=== PATIENT | female | born 1950 | race African-American/Black ===

== ENCOUNTER 2023-04-15 11:24 | Observation (INO) ==
[2023-04-15 14:55] VITALS: BMI 35.4
[2023-04-15] MEDS: PEPCID 20 MG VIAL 20 MG in NS 50 ML IV 50 ML IV SCH ×2 (15:19→21:15)
[2023-04-15] MEDS: PROTONIX INJ 40 MG VIAL IVP SCH ×2 (15:19→21:15)
[2023-04-15] MEDS: NS 1,000 ML IV 1,000 ML IV SCH (15:21)
[2023-04-15 15:30] LABS: BASOPHILS % (AUTO) 0.4 % (0.2-1.0); EOSINOPHILS # (AUTO) 0.1 x10^3/uL (0.0-0.2); EOSINOPHILS % (AUTO) 1.7 % (0.9-2.9); HEMATOCRIT 27.6 % (36.0-47.0); HEMOGLOBIN 8.7 g/dL (12.0-16.0); LYMPHOCYTES # (AUTO) 1.9 X10^3/uL (1.3-2.9); LYMPHOCYTES % (AUTO) 26.7 % (21.0-51.0); MEAN CORPUSCULAR HEMOGLOBIN 22.4 pg (27.0-34.0); MEAN CORPUSCULAR HGB CONC 31.6 g/dL (33.0-35.0); MEAN CORPUSCULAR VOLUME 70.9 fL (80.0-100.0); MEAN PLATELET VOLUME 7.8 fL (7.4-11.0); MONOCYTES # (AUTO) 0.9 x10^3/uL (0.3-0.8); MONOCYTES % (AUTO) 12.4 % (0.0-13.0); NEUTROPHILS # (AUTO) 4.1 x10^3/uL (2.2-4.8); NEUTROPHILS % (AUTO) 58.8 % (42.0-75.0); PLATELET COUNT 421 X10^3/uL (150.0-450.0); RED BLOOD COUNT 3.89 X10^6/uL (3.5-5.4); RED CELL DISTRIBUTION WIDTH 20.5 % (11.6-16.5); WHITE BLOOD COUNT 6.9 X10^3/uL (3.6-10.0)
[2023-04-15 15:46] LABS: ALANINE AMINOTRANSFERASE 30 Units/L (12-78); ALBUMIN 2.8 g/dL (3.4-5.0); ALKALINE PHOSPHATASE 79 Units/L (46-116); ASPARTATE AMINO TRANSFERASE 29 Units/L (15-37); BLOOD UREA NITROGEN 13 mg/dL (7-18); CALCIUM 8.4 mg/dL (8.5-10.1); CARBON DIOXIDE 31.5 mmol/L (21-32); CHLORIDE 107 mmol/L (98-107); COR CA(FOR HYPOALB) 9.4 mg/dL (8.5-10.1); CREATININE 1.15 mg/dL (0.55-1.02); GLUCOSE 88 mg/dL (65-99); POTASSIUM 4.1 mmol/L (3.5-5.1); SODIUM 144 mmol/L (136-145); TOTAL PROTEIN 6.8 g/dL (6.4-8.2); eGFR NON BLACK RACES 49 (>60)
[2023-04-15 15:57] LABS: ANISOCYTOSIS 1+; BURR CELLS FEW; HYPOCHROMASIA SLIGHT; MICROCYTOSIS SLIGHT; OVALOCYTES FEW; PLATELET MORPHOLOGY COMMENT NORMAL (NORMAL); POIKILOCYTOSIS SLIGHT; SCHISTOCYTES FEW; TARGET CELLS FEW
[2023-04-15] MEDS ORDERED: PATIENT'S HOME MEDICATION (Oxycodone-Acetaminophen 10-325 mg tablet) PO PRN (22:43)
[2023-04-15] MEDS ORDERED: ULTRAM PO PRN (22:43)
[2023-04-16] MEDS: NS 1,000 ML IV 1,000 ML IV SCH ×2 (04:30→17:44)
[2023-04-16 05:23] LABS: BASOPHILS % (AUTO) 0.7 % (0.2-1.0); EOSINOPHILS # (AUTO) 0.2 x10^3/uL (0.0-0.2); EOSINOPHILS % (AUTO) 2.6 % (0.9-2.9); HEMATOCRIT 26.7 % (36.0-47.0); HEMOGLOBIN 8.8 g/dL (12.0-16.0); LYMPHOCYTES # (AUTO) 2.1 X10^3/uL (1.3-2.9); LYMPHOCYTES % (AUTO) 33.3 % (21.0-51.0); MEAN CORPUSCULAR HEMOGLOBIN 22.8 pg (27.0-34.0); MEAN CORPUSCULAR HGB CONC 32.9 g/dL (33.0-35.0); MEAN CORPUSCULAR VOLUME 69.3 fL (80.0-100.0); MEAN PLATELET VOLUME 7.8 fL (7.4-11.0); MONOCYTES # (AUTO) 0.6 x10^3/uL (0.3-0.8); MONOCYTES % (AUTO) 9.1 % (0.0-13.0); NEUTROPHILS # (AUTO) 3.5 x10^3/uL (2.2-4.8); NEUTROPHILS % (AUTO) 54.3 % (42.0-75.0); PLATELET COUNT 460 X10^3/uL (150.0-450.0); RED BLOOD COUNT 3.86 X10^6/uL (3.5-5.4); RED CELL DISTRIBUTION WIDTH 20.5 % (11.6-16.5); WHITE BLOOD COUNT 6.4 X10^3/uL (3.6-10.0)
[2023-04-16 05:25] LABS: ALANINE AMINOTRANSFERASE 28 Units/L (12-78); ALBUMIN 2.6 g/dL (3.4-5.0); ALKALINE PHOSPHATASE 79 Units/L (46-116); ASPARTATE AMINO TRANSFERASE 27 Units/L (15-37); BLOOD UREA NITROGEN 11 mg/dL (7-18); CARBON DIOXIDE 31.5 mmol/L (21-32); CHLORIDE 108 mmol/L (98-107); COR CA(FOR HYPOALB) 9.1 mg/dL (8.5-10.1); CREATININE 1.03 mg/dL (0.55-1.02); GLUCOSE 82 mg/dL (65-99); POTASSIUM 3.8 mmol/L (3.5-5.1); SODIUM 145 mmol/L (136-145); TOTAL PROTEIN 6.5 g/dL (6.4-8.2); eGFR NON BLACK RACES 56 (>60)
[2023-04-16 06:45] LABS: ANISOCYTOSIS 1+; BURR CELLS FEW; HYPOCHROMASIA SLIGHT; MICROCYTOSIS 1+; OVALOCYTES FEW; PLATELET MORPHOLOGY COMMENT NORMAL (NORMAL); POIKILOCYTOSIS SLIGHT; SCHISTOCYTES FEW; TARGET CELLS FEW
[2023-04-16] MEDS ORDERED: POTASSIUM CHLORIDE LIQ 20 MEQ UDC PO PRN (08:04)
[2023-04-16] MEDS ORDERED: POTASSIUM CHL 40 MEQ/NS 0.45% 500 ML IV PRN (08:04)
[2023-04-16] MEDS ORDERED: K-DUR TAB 20 MEQ PO PRN (08:04)
[2023-04-16] MEDS ORDERED: K-RIDER 10 MEQ/NS 100 ML 10 MEQ/100 ML BAG IV PRN (08:04)
[2023-04-16] MEDS ORDERED: KLOR-CON PO PRN (08:04)
[2023-04-16] MEDS ORDERED: POTASSIUM CHL 60 MEQ/NS 0.45% 500 ML IV PRN (08:04)
[2023-04-16] MEDS ORDERED: MICRO K EXTEN CAP 10 MEQ PO PRN (08:04)
--- NOTE | 2023-04-16 08:50 | DR.UPDATE ---
H&P Update Prescription drug monitoring program results: PDMP reviewed and no concerns identified H&P Reviewed: Yes Any changes to H&P?: Yes Changes noted:: IS A YEAR OLD PATIENT OF OURS. SHE PRESENTED TO THE OFFICE ON 04/15 WITH COMPLAINTS OF FATIGUE, GENERALIZED WEAKNESS, SHORTNESS OF BREATH, AND JOINT PAIN. SHE REPORTS THAT SYMPTOMS HAVE BEEN ONGOING FOR SEVERAL WEEKS. SHE HAD LABS DRAWN ON 03/26/23. HER HEMOGLOBIN WAS NOTED TO BE 8.6 AND HCT WAS 29.1 AT THAT TIME. SHE DENIED THE PRESENCE OF BLOOD IN STOOLS OR ANY ABNORMAL BLEEDING. SHE DENIES ABDOMINAL PAIN. PMH INCLUDES: CARDIAC ARRHYTHMIA, HTN, A-FIB, ARTHRITIS, CHRONIC BACK PAIN, TYPE 2 DM, ANEMIA, ANXIETY, DEPRESSION, , CHOLECYSTECTOMY, BILATERAL KNEE SURGERY, GASTRIC BYPASS. DECISION WAS MADE TO ADMIT PATIENT TO THE HOSPITAL OBSERVATION STATUS FOR FURTHER EVALUATION AND TREATMENT OF ANEMIA, GENERALIZED WEAKNESS, TYPE 2 DM MELLITUS, HTN. ON ARRIVAL, HER VITALS WERE 98.2-84-18-98%-123/83. LABS WERE OBTAINED. WBC 6.9, RBC 3.89, HGB 8.7, HCT 27.6, PLT COUNT 421, SODIUM 144, POTAS SIUM 4.1, CHLORIDE 107, BUN 13, CREATININE 1.15, GLUCOSE 88, CALCIUM 8.4, TOTAL BILI 0.80, AST 29, ALT 30, ALK PHOS 79, TOTAL PROTEIN 6.8, ALBUMIN 2.8. SHE WAS STARTED ON NORMAL SALINE AT 80 ML/HR, FAMOTIDINE 20MG IV Q12H, AND PROTONIX 40MG IV BID. WE WILL RESUME HER HOME MEDICATIONS OF REQUIP, HCTZ, PERCOCET PRN PAIN, COREG, AMIODARONE, SIMVASTATIN, DULOXETINE, ULTRAM PRN, ZANAFLEX, AND NEURONTIN. SHE USUALLY TAKES ELIQUIS AND BRILINTA AT HOME. WE WILL HOLD THESE FOR NOW. WE WILL OBTAIN A STOOL TO CHECK FOR OCCULT BLOOD. WE WILL OBTAIN AN ANEMIA PANEL, PELVIC ULTRASOUND, AND CONSULT FOR POSSIBLE ENDOSCOPY. OTHERWISE, WE PLAN TO FOLLOW-UP WITH AM LABS AND CONTINUE TO MONITOR. TIME SPENT ON CLINICAL ASSESSMENT, REVIEWING LABS AND IMAGING, DECISION MAKING, AND DOCUMENTATION GREATER THAN 75 MINUTES. Patient was examined?: Yes
[2023-04-16] MEDS ORDERED: AMIODARONE 100 MG PO SCH (09:00)
[2023-04-16] MEDS: COREG TAB 3.125 MG PO SCH ×2 (09:11→21:30)
[2023-04-16] MEDS: CORDARONE TAB 200 MG PO SCH (09:11)
[2023-04-16] MEDS: HYDROCHLOROTHIAZIDE 12.5 MG CAP PO SCH (09:11)
[2023-04-16] MEDS: PEPCID 20 MG VIAL 20 MG in NS 50 ML IV 50 ML IV SCH ×2 (09:12→21:30)
[2023-04-16] MEDS: PROTONIX INJ 40 MG VIAL IVP SCH ×2 (09:12→21:30)
[2023-04-16] MEDS: CYMBALTA PO SCH (09:12)
[2023-04-16] MEDS: ZANAFLEX PO SCH ×2 (09:12→21:29)
[2023-04-16] MEDS: NEURONTIN CAP 400 MG PO SCH ×2 (09:12→21:28)
--- NOTE | 2023-04-16 12:40 | DR.CONSULT ---
Consult - Consultation for Day of: Date: 04/16/23 - Chief Complaint Chief Complaint: Anemia, occult GIB - History of Present Illness History of Present Illness: Pt. referred for Anemia, occult GIB. Pt has h/o Gastric Bypass, last EGD on 09/23/2018, showed gastric bypass. Last colonoscopy was on 05/08/2022. She has h/o a large Tubular adenoma of Ascending colon. Pt. takes Plavix and Eliquis, denies any melena or hematochezia. - Past Medical History Past Medical History: Hypertension, Dyslipidemia, Diabetes, Depression, Anxiety, Hypothyroidism, Arthritis, Sleep Apnea - Past Surgical History Surgical History: , Cholecystectomy, Weight Loss Surgery Additional Surgical History: History of Gastric bypass - Family History Family Medical History: Cancer (Ovarian). denies: Diabetes Mellitus, [place], Coronary Artery Disease, Heart Failure, Sudden Cardiac , Hypertension - Social History Does patient currently use any type of tobacco product: No Have you used tobacco products in the last 12 months: No Does any household member use tobacco: No Alcohol Use: None Drug Use: None - Medications Home Medications: No Known Drug Allergies Allergy (Verified 04/15/23 14:59) CONTINUE taking the following medications amiodarone 100 mg tablet 200 mg PO DAILY 04/15/23 [History] apixaban 5 mg tablet (Eliquis) 5 mg PO BID 04/15/23 [History] carvedilol 3.125 mg tablet (Coreg) 3.125 mg PO BID 04/15/23 [History] duloxetine 60 mg capsule,delayed release 60 mg PO DAILY 04/15/23 [History] hydrochlorothiazide 12.5 mg capsule 12.5 mg PO DAILY 04/15/23 [History] oxycodone-acetaminophen 10 mg-325 mg tablet 1 tab PO TID PRN 04/15/23 [History] pantoprazole 40 mg tablet,delayed release (Protonix) 40 mg PO DAILY 04/15/23 [History] ticagrelor 90 mg tablet (Brilinta) 90 mg PO BID 04/15/23 [History] tramadol 50 mg tablet 50 mg PO QID PRN 04/15/23 [History] - Review of Systems Constitutional: denies: No Symptoms Reported, See HPI, Fever, Chills, Sweats, Weakness, Malaise, Other Eyes: denies: No Symptoms Reported, See HPI, Pain, Vision Change, Conjunctivae Inflammation, Eyelid Inflammation, Redness, Other ENT: denies: No Symptoms Reported, See HPI, Ear Pain, Ear Discharge, Nose Pain, Nose Discharge, Nose Congestion, Mouth Pain, Mouth Swelling, Throat Pain, Throat Swelling, Other Respiratory: denies: No Symptoms Reported, See HPI, Cough, Dry, Shortness of Breath, Hemoptysis, SOB with Excertion, Pleuritic Pain, Sputum, Wheezing, Other Cardiovascular: denies: No Symptoms Reported, Chest Pain, See HPI, Palpitations, Orthopnea, Paroxysmal Noc. Dyspnea, Edema, Light Headedness, Other Gastrointestinal: denies: No Symptoms Reported, See HPI, Nausea, Vomiting, Abdominal Pain, Diarrhea, Constipation, Melena, Hematochezia, Other Genitourinary: denies: No Symptoms Reported, See HPI, Dysuria, Frequency, Incontinence, Hematuria, Retention, Other Musculoskeletal: denies: No Symptoms Reported, See HPI, Shoulder Pain, Arm Pain, Back Pain, Hand Pain, Leg Pain, Foot Pain, Neck Pain, Other Neurological: denies: No Symptoms Reported, See HPI, Weakness, Numbness, Incoordination, Change in Speech, Confusion, Seizures, Other - Physical Exam Vital Signs: Temperature 97.7 F Temperature 97.9 F Pulse Rate [Right Brachial] 60 Pulse Rate [Right Brachial] 68 Respiratory Rate 18 Respiratory Rate 18 Blood Pressure [Right Arm] 141/63 Blood Pressure 136/104 O2 Sat by Pulse Oximetry 100 O2 Sat by Pulse Oximetry 98 Oriented: Normal, Time, Person, Place. negative: Not Oriented, Unable to test, Other Eyes: negative: Normal, Blurred Vision, Diplopia, Discharge, Pain, Redness, Photophobia, Other Ear: negative: Normal, Right, Left, Swelling, Ecchymosis, Hemotypanum, Abrasion, Laceration Nose: negative: Normal, Injected, Discharge, Blood, Other Respiratory: Clear Throughout Cardiovascular: negative: Normal, Tachycardia, Bradycardia, Irregular, S3, S4, Systolic, Diastolic, Murmur, Edema, Other Auscultation: Bowel Sounds: negative: Normal, Bruit, Absent, Increased, Decreased, High Pitched, Other Palpation: negative: Normal, Spleen Enlarged, Liver Enlarged, Mass Pulsatile, O ther Tenderness: negative: Normal, Diffuse, RUQ, RLQ, LUQ, LLQ, Epigastric, Periumbilical, Suprapubic, Mild, Moderate, Severe, Rebound, Guarding, Rigidity, Other Skin: negative: Normal, Decreased Turgur, Rash, Papular, Macular, Maculopapular, Vesicular, Pustular, Petechial, Red, Tender, Hot, Diaphoresis, Wound, Bruising, Ecchymosis, Other Musculoskeletal: negative: Normal, Right, Left, Shoulder, Clavicle, Arm, Elbow, Forearm, Wrist, Hand, Hip, Thigh, Knee, Leg, Ankle, Foot, Back:Thoracic, Back:Lumbar, Back:Midline, Back:Paraspinous, Pelvis, Swelling, Tender, Deformity, Pulse Deficit, Motor Deficit, Sensory Deficit, Instability, Crepitance - Plan Plan: Assessment: 1. Iron deficiency anemia, partly due to gastric bypass surgery, pt. , however also as occult GIB. r/o /DU. 2. H/o large tubular adenoma, last colonoscopy done last year was normal. Plan: Pt. had full breakfast today, unable to do EGD today, she'll be scheduled for ourpatient EGD next . She will also need an outpatient Video Capsule Endoscopy, this will be sceduled as well. The plan was d/w pt. in detail, she understands and agrees with above workup. - Allergies Allergies/Adverse Reactions: Allergies Allergy/AdvReac Type Severity Reaction Status Date / Time No Known Drug Allergies Allergy Verified 04/15/23 14:59
[2023-04-16] MEDS: PERCOCET TAB 5/325 MG PO PRN (13:59)
[2023-04-16] MEDS ORDERED: ZOCOR TAB 40 MG PO SCH (21:00)
[2023-04-16] MEDS ORDERED: REQUIP PO SCH (21:00)
[2023-04-17 05:37] LABS: BASOPHILS % (AUTO) 0.5 % (0.2-1.0); EOSINOPHILS # (AUTO) 0.2 x10^3/uL (0.0-0.2); EOSINOPHILS % (AUTO) 3.1 % (0.9-2.9); HEMATOCRIT 24.9 % (36.0-47.0); HEMOGLOBIN 8.1 g/dL (12.0-16.0); LYMPHOCYTES # (AUTO) 2.4 X10^3/uL (1.3-2.9); LYMPHOCYTES % (AUTO) 36.6 % (21.0-51.0); MEAN CORPUSCULAR HEMOGLOBIN 22.6 pg (27.0-34.0); MEAN CORPUSCULAR HGB CONC 32.4 g/dL (33.0-35.0); MEAN CORPUSCULAR VOLUME 69.8 fL (80.0-100.0); MEAN PLATELET VOLUME 7.8 fL (7.4-11.0); MONOCYTES # (AUTO) 0.7 x10^3/uL (0.3-0.8); MONOCYTES % (AUTO) 11.1 % (0.0-13.0); NEUTROPHILS # (AUTO) 3.2 x10^3/uL (2.2-4.8); NEUTROPHILS % (AUTO) 48.7 % (42.0-75.0); PLATELET COUNT 411 X10^3/uL (150.0-450.0); RED BLOOD COUNT 3.56 X10^6/uL (3.5-5.4); RED CELL DISTRIBUTION WIDTH 19.9 % (11.6-16.5); WHITE BLOOD COUNT 6.5 X10^3/uL (3.6-10.0)
[2023-04-17 05:38] LABS: ALANINE AMINOTRANSFERASE 29 Units/L (12-78); ALBUMIN 2.6 g/dL (3.4-5.0); ALKALINE PHOSPHATASE 71 Units/L (46-116); ASPARTATE AMINO TRANSFERASE 24 Units/L (15-37); BLOOD UREA NITROGEN 11 mg/dL (7-18); CALCIUM 8.2 mg/dL (8.5-10.1); CARBON DIOXIDE 30.6 mmol/L (21-32); CHLORIDE 107 mmol/L (98-107); COR CA(FOR HYPOALB) 9.3 mg/dL (8.5-10.1); CREATININE 0.96 mg/dL (0.55-1.02); GLUCOSE 84 mg/dL (65-99); POTASSIUM 4.2 mmol/L (3.5-5.1); SODIUM 143 mmol/L (136-145); TOTAL PROTEIN 6.2 g/dL (6.4-8.2); eGFR NON BLACK RACES > 60 (>60)
[2023-04-17] MEDS: PERCOCET TAB 5/325 MG PO PRN (05:52)
[2023-04-17 06:08] LABS: PLATELET MORPHOLOGY COMMENT NORMAL (NORMAL)
[2023-04-17 06:09] LABS: ANISOCYTOSIS 1+; BURR CELLS PRESENT; HYPOCHROMASIA 1+; MICROCYTOSIS 1+; OVALOCYTES PRESENT; POIKILOCYTOSIS PRESENT; SCHISTOCYTES PRESENT; TARGET CELLS PRESENT
--- NOTE | 2023-04-17 07:44 | US ---
HISTORYAnemiaSTUDYPELVIC (NON OB)COMPARISONNone availableTECHNIQUEMultiple stevens scale, duplex and color flow Doppler images of the pelvic organs was performed transabdominalFINDINGSThe uterus measures 5.4 x 3.3 x 3.9 centimeters. No uterine masses. The endometrial thickness is 3 millimeters.The ovaries were not visualized. No free fluid in the cul de sac. No dominant adnexal massesIMPRESSIONNo dominant uterine massesEndometrial thickness of 3 millimeters (upper limits of normal for a postmenopausal patient)Electronically signed by: Pippa Arnold (Apr 17, 2023 07:43:13)
[2023-04-17] MEDS: NEURONTIN CAP 400 MG PO SCH (08:35)
[2023-04-17] MEDS: COREG TAB 3.125 MG PO SCH (08:35)
[2023-04-17] MEDS: ZANAFLEX PO SCH (08:35)
[2023-04-17] MEDS: PROTONIX INJ 40 MG VIAL IVP SCH (08:35)
[2023-04-17] MEDS: CORDARONE TAB 200 MG PO SCH (08:35)
[2023-04-17] MEDS: HYDROCHLOROTHIAZIDE 12.5 MG CAP PO SCH (08:35)
[2023-04-17] MEDS: CYMBALTA PO SCH (08:35)
[2023-04-17] MEDS: PEPCID 20 MG VIAL 20 MG in NS 50 ML IV 50 ML IV SCH (08:35)
[2023-04-17 12:19] VITALS: BP 107/55; PULSE 55; TEMP 97.7; O2SAT 100
== END 2023-04-17 14:05 | disposition home health service (06) ==
LOC: MED/SURG
PROVIDERS: ADMIT Internal Medicine; ATTEND Internal Medicine
DX: I10 Essential (primary) hypertension; R53.1 Weakness; E11.65 Type 2 diabetes mellitus with hyperglycemia; R06.02 Shortness of breath; I48.91 Unspecified atrial fibrillation; D64.89 Other specified anemias; Z98.84 Bariatric surgery status; R26.89 Other abnormalities of gait and mobility; E03.8 Other specified hypothyroidism; Z79.01 Long term (current) use of anticoagulants; K92.1 Melena

== ENCOUNTER 2023-12-10 10:49 | Observation (INO) ==
[2023-12-10 14:40] VITALS: BMI 28.3
[2023-12-10 15:40] LABS: EOSINOPHILS # (AUTO) 0.1 x10^3/uL (0.0-0.2); MEAN CORPUSCULAR VOLUME 77.4 fL (80.0-100.0); NEUTROPHILS # (AUTO) 3.3 x10^3/uL (2.2-4.8)
[2023-12-10 15:45] LABS: BASOPHILS % (AUTO) 0.8 % (0.2-1.0); EOSINOPHILS % (AUTO) 1.3 % (0.9-2.9); HEMATOCRIT 28.4 % (36.0-47.0); LYMPHOCYTES % (AUTO) 32.6 % (21.0-51.0); MEAN CORPUSCULAR HEMOGLOBIN 24.6 pg (27.0-34.0); MEAN CORPUSCULAR HGB CONC 31.8 g/dL (33.0-35.0); MEAN PLATELET VOLUME 8.4 fL (7.4-11.0); MONOCYTES # (AUTO) 0.7 x10^3/uL (0.3-0.8); MONOCYTES % (AUTO) 10.9 % (0.0-13.0); NEUTROPHILS % (AUTO) 54.4 % (42.0-75.0); PLATELET COUNT 364 X10^3/uL (150.0-450.0); RED BLOOD COUNT 3.67 X10^6/uL (3.5-5.4); RED CELL DISTRIBUTION WIDTH 23.1 % (11.6-16.5); WHITE BLOOD COUNT 6.1 X10^3/uL (3.6-10.0)
[2023-12-10 15:56] LABS: ALANINE AMINOTRANSFERASE 50 Units/L (12-78); ALKALINE PHOSPHATASE 74 Units/L (46-116); ASPARTATE AMINO TRANSFERASE 39 Units/L (15-37); BLOOD UREA NITROGEN 9 mg/dL (7-18); CALCIUM 8.3 mg/dL (8.5-10.1); CARBON DIOXIDE 31.1 mmol/L (21-32); CHLORIDE 104 mmol/L (98-107); COR CA(FOR HYPOALB) 9.1 mg/dL (8.5-10.1); GLUCOSE 81 mg/dL (65-99); POTASSIUM 3.6 mmol/L (3.5-5.1); SODIUM 138 mmol/L (136-145); TOTAL PROTEIN 6.6 g/dL (6.4-8.2); eGFR NON BLACK RACES 58 (>60)
[2023-12-10] MEDS ORDERED: CONSULT PHARMACY - POTASSIUM & MAGNESIUM XX SCH ×2 (16:00→20:00)
[2023-12-10 16:10] LABS: ANISOCYTOSIS 2+; HYPOCHROMASIA SLIGHT; MICROCYTOSIS SLIGHT; PLATELET MORPHOLOGY COMMENT NORMAL (NORMAL); SCHISTOCYTES PRESENT
--- NOTE | 2023-12-10 16:24 | EKG ---
Test Reason : syncope, sob Blood Pressure : */* mmHG Vent. Rate : 75 BPM Atrial Rate : 75 BPM P-R Int : 144 ms QRS Dur : 78 ms QT Int : 390 ms P-R-T Axes : 70 -19 73 degrees QTc Int : 435 ms Normal sinus rhythm Anterior infarct , age undetermined Abnormal ECG No previous ECGs available Confirmed by Corby Wright MD ([id number]) on 12/14/2023 7:47:03 AM Referred By: Confirmed By: Corby Wright MD
[2023-12-10] MEDS: NS 1,000 ML IV 1,000 ML IV SCH (16:28)
[2023-12-10] MEDS ORDERED: K-DUR TAB 20 MEQ PO SCH ×2 (17:00→21:00)
--- NOTE | 2023-12-10 17:04 | RAD ---
EXAM: CHEST, 1 VIEW HISTORY: Shortness of breath COMPARISON: 10/19/2020 FINDINGS: The trachea is midline. The cardiac silhouette is enlarged with a tortuous thoracic aorta . The nissa gs are clear without focal infiltrate or effusion. The bony thorax is unremarkable. IMPRESSION: No acute cardiopulmonary disease. THIS IS AN ELECTRONICALLY VERIFIED FINAL REPORT 12/10/2023 5:00 PM - Electronically signed by Rohan Sandoval MD
[2023-12-10] MEDS ORDERED: DUONEB 0.5 MG/3 MG (3 mL) NEB ONE (19:35)
[2023-12-10] MEDS: DUONEB 0.5 MG/3 MG (3 mL) NEB SCH (20:59)
[2023-12-10] MEDS: MAG-OX TAB PO SCH ×2 (21:07→21:56)
[2023-12-10 22:21] LABS: BILIRUBIN,URINE NEGATIVE (NEGATIVE); BLOOD/HEMOGLOBIN,URINE NEGATIVE (NEGATIVE); GLUCOSE, URINE NEGATIVE (NEGATIVE); KETONES,URINE NEGATIVE (NEGATIVE); LEUKOCYTE ESTERASE ,URINE NEGATIVE (NEGATIVE); NITRITES,URINE NEGATIVE (NEGATIVE); PROTEIN,URINE NEGATIVE (NEGATIVE); UROBILINOGEN,URINE NORMAL (NORMAL)
[2023-12-10 22:42] LABS: APPEARANCE,URINE CLEAR (CLEAR); COLOR,URINE PALE YELLOW (YELLOW)
[2023-12-11] MEDS ORDERED: MAALOX or MYLANTA PO PRN (04:31)
[2023-12-11] MEDS: NS 1,000 ML IV 1,000 ML IV SCH ×3 (04:44→21:08)
[2023-12-11] MEDS: DUONEB 0.5 MG/3 MG (3 mL) NEB SCH ×4 (05:45→23:00)
[2023-12-11 06:27] LABS: BASOPHILS % (AUTO) 0.6 % (0.2-1.0); EOSINOPHILS # (AUTO) 0.1 x10^3/uL (0.0-0.2); EOSINOPHILS % (AUTO) 1.6 % (0.9-2.9); HEMATOCRIT 24.9 % (36.0-47.0); HEMOGLOBIN 8.1 g/dL (12.0-16.0); LYMPHOCYTES # (AUTO) 2.8 X10^3/uL (1.3-2.9); LYMPHOCYTES % (AUTO) 49.1 % (21.0-51.0); MEAN CORPUSCULAR HEMOGLOBIN 25.1 pg (27.0-34.0); MEAN CORPUSCULAR HGB CONC 32.6 g/dL (33.0-35.0); MEAN CORPUSCULAR VOLUME 77.1 fL (80.0-100.0); MONOCYTES # (AUTO) 0.7 x10^3/uL (0.3-0.8); MONOCYTES % (AUTO) 13.2 % (0.0-13.0); NEUTROPHILS % (AUTO) 35.5 % (42.0-75.0); PLATELET COUNT 320 X10^3/uL (150.0-450.0); RED BLOOD COUNT 3.23 X10^6/uL (3.5-5.4); RED CELL DISTRIBUTION WIDTH 22.5 % (11.6-16.5); WHITE BLOOD COUNT 5.6 X10^3/uL (3.6-10.0)
[2023-12-11 06:46] LABS: ALANINE AMINOTRANSFERASE 38 Units/L (12-78); ALBUMIN 2.6 g/dL (3.4-5.0); ALKALINE PHOSPHATASE 62 Units/L (46-116); ASPARTATE AMINO TRANSFERASE 31 Units/L (15-37); BLOOD UREA NITROGEN 10 mg/dL (7-18); CALCIUM 7.9 mg/dL (8.5-10.1); CARBON DIOXIDE 28.9 mmol/L (21-32); CHLORIDE 106 mmol/L (98-107); CREATININE 0.89 mg/dL (0.55-1.02); GLUCOSE 68 mg/dL (65-99); POTASSIUM 3.9 mmol/L (3.5-5.1); SODIUM 140 mmol/L (136-145); TOTAL PROTEIN 5.9 g/dL (6.4-8.2); eGFR NON BLACK RACES > 60 (>60)
[2023-12-11 07:00] LABS: ANISOCYTOSIS 2+; HYPOCHROMASIA SLIGHT; MICROCYTOSIS SLIGHT; PLATELET MORPHOLOGY COMMENT NORMAL (NORMAL)
[2023-12-11 07:01] LABS: SCHISTOCYTES SLIGHT; TARGET CELLS SLIGHT
--- NOTE | 2023-12-11 09:05 | RAD ---
EXAM:Left hand three viewsHISTORY:Fall, left hand swellingCOMPARISON:NoneFINDINGS:Bones are osteopenic. No fracture, lytic, or blastic lesion is identified. No erosive arthritis or soft tissue abnormalities identified. Degenerative joint disease is present in the D IP joints and radioscaphoid joint. Distal radius and distal ulna are intact.IMPRESSION:No acute findingsDegenerative joint disease as aboveTHIS IS AN ELECTRONICALLY VERIFIED FINAL REPORT12/11/2023 9:02 AM - Electronically signed by Tejinder Moss MD
--- NOTE | 2023-12-11 09:06 | RAD ---
EXAM:Left wrist three viewsHISTORY:Pain and swelling status post fallCOMPARISON:NoneFINDINGS:There is no evidence for fracture, lytic, or blastic lesion. No erosive arthritis is identified. There is radioscaphoid degenerative joint disease present. Carpal bones appear intact. Distal radius and distal ulna appear intact.IMPRESSION:Radioscaphoid degenerative joint diseaseNo acute fracture identifiedTHIS IS AN ELECTRONICALLY VERIFIED FINAL REPORT12/11/2023 9:03 AM - Electronically signed by Tejinder Moss MD
[2023-12-11] MEDS ORDERED: PERCOCET TAB 5/325 MG PO PRN (10:15)
[2023-12-11] MEDS: BRILINTA PO SCH ×2 (10:39→21:13)
[2023-12-11] MEDS: PEPCID TAB 40 MG PO SCH ×2 (10:39→21:12)
[2023-12-11] MEDS: CYMBALTA PO SCH (10:40)
[2023-12-11] MEDS: LINZESS PO SCH (10:40)
[2023-12-11] MEDS: COREG TAB 3.125 MG PO SCH ×2 (10:40→21:17)
[2023-12-11] MEDS: SYNTHROID 100 mcg TAB PO SCH (10:40)
[2023-12-11] MEDS: NEURONTIN CAP 300 MG PO SCH ×2 (10:41→21:09)
[2023-12-11] MEDS: PROTONIX TAB 40 MG PO SCH ×2 (10:41→21:13)
[2023-12-11] MEDS: XANAX PO SCH ×2 (10:41→21:12)
[2023-12-11] MEDS: CORDARONE TAB 200 MG PO SCH (10:44)
--- NOTE | 2023-12-11 11:57 | DR.H&P ---
H&P - History & Physical for Day of: H&P Date: 12/10/23 - Chief Complaint Chief Complaint: WEAKNESS, RECENT FALLS, SYNCOPE - History of Present Illness History of Present Illness: IS A 73 YEAR OLD PATIENT OF OURS. HER MEDICAL HX INCLUDES: CAD, CATARACTS, HTN, ATRIAL FIBRILLATION, CARDIAC ARRHYTHMIAS, SLEEP APNEA, ARTHRITIS, DM TYPE II, HYPOTHYROIDISM, ANEMIA, ANXIETY, DEPRESSION, CARDIAC STENTS, , KNEE REPLACEMENT, AND BACK SURGERY. SHE PRESENTED TO THE OFFICE WITH COMPLAINTS OF WEAKNESS, TWO RECENT FALLS, AND A SYNCOPAL EPISODE. PATIENT REPORTS FEELING DIZZY, WEAK, AND SHORT OF BREATH FOR THE PAST 4-5 DAYS. SHE COMPLAINS OF DULL PAIN TO THE RIGHT HIP AND LEFT WRIST AND HAND FOLLOWING FALL. DECISION WAS MADE TO ADMIT PATIENT TO THE HOSPITAL FOR FURTHER EVALUATION AND TREATMENT. ON ARRIVAL TO THE HOSPITAL, VITALS WERE: 98.7-75-16-100%-152/69. LABS WERE OBTAINED. WBC 6.1, RBC 3.67, HGB 9.0, HCT 28.4, PLT COUNT 364, D-DIMER 0.70, SODIUM 138, POTASSIUM 3.6, CHLORIDE 104, CARBON DIOXIDE 31.1, BUN 9, CREATININE 1.00, GLUCOSE 81, CALCIUM 8.3, TOTAL BILI 1.30, AST 39, ALT 50, ALK PHOS 74, CREATINE KINASE 124, TROPONIN 26.8, BNP 165, TOTAL PROTEIN 6.6, ALBUMIN 3.0. A URINALYSIS WAS OBTAINED AND WAS UNREMARKABLE. URINE CULTURE WAS SET UP. COVID, INFLUENZA, AND RSV NEGATIVE. EKG WAS OBTAINED AND REVEALED: NORMAL SINUS RHYTHM WITH HR 75 BPM. A CHEST XRAY WAS OBTAINED AND REVEALED: No acute cardiopulmonary disease. LEFT HAND XRAY REVEALED: Bones are osteopenic. No fracture, lytic, or blastic lesion is identified. No erosive arthritis or soft tissue abnormalities identified. Degenerative joint disease is present in the D IP joints and radioscaphoid joint. Distal radius and distal ulna are intact. LEFT WRIST XRAY REVEALED: Radioscaphoid degenerative joint disease. No acute fracture identified. WE OBTAINED A BRAIN CT, BUT READING IS NOT AVAILABLE YET. SHE WAS STARTED ON NORMAL SALINE AT 80 ML/HR, DUONEBS TID. WE WILL RESUME HER HOME MEDICATIONS OF XANAX, AMIODARONE, ATORVASTATIN, CARVEDILOL, DULOXETINE, FAMOTIDINE, LEVOTHYROXINE, LINZESS, PERCOCET, PROTONIX, REQUIP, BRILINTA, AND ZANAFLEX. WE WILL ALSO RESTART HER GABAPENTIN, BUT AT 300MG BID AND RESTART THE TIZANIDINE AT 2MG BID. WE WILL OBTAIN AN ECHO AND A CAROTID DOPPLER. OTHERWISE, WE WILL FOLLOW-UP WITH AM LABS AND CONTINUE TO MONITOR. TIME SPENT ON CLINICAL ASSESSMENT, REVIEWING LABS AND IMAGING, DECISION MAKING, AND DOCUMENTATION GREATER THAN 75 MINUTES. - Past Medical History Past Medical History: Hypertension, Dyslipidemia, Diabetes, Depression, Anxiety, Hypothyroidism, Arthritis, Sleep Apnea - Past Surgical History Surgical History: Angioplasty/Stents, Additional Surgical History: History of Gastric bypass - Family History Family Medical History: Cancer (Ovarian). denies: Diabetes Mellitus, [place], Coronary Artery Disease, Heart Failure, Sudden Cardiac , Hypertension - Social History Does patient currently use any type of tobacco product: No Have you used tobacco products in the last 12 months: No Type of Tobacco Use: None Does any household member use tobacco: No Alcohol Use: None Drug Use: None - Review of Systems Constitutional: Weakness Eyes: No Symptoms Reported ENT: No Symptoms Reported Respiratory: Shortness of Breath, SOB with Excertion Cardiovascular: Light Headedness Gastrointestinal: No Symptoms Reported Genitourinary: No Symptoms Reported Musculoskeletal: No Symptoms Reported Skin: No Symptoms Reported Neurological: Weakness - Physical Exam Vital Signs: Vital Signs Temperature 98.4 F Temperature 98.6 F Pulse Rate [Brachial] 79 Pulse Rate [Brachial] 82 Respiratory Rate 20 Respiratory Rate 20 Blood Pressure [Left Arm] 145/68 Blood Pressure [Left Arm] 121/57 O2 Sat by Pulse Oximetry 99 O2 Sat by Pulse Oximetry 100 Oriented: Normal Eyes: Normal Ear: Normal Nose: Normal Throat: Normal Respiratory: Diminished Throughout Cardiovascular: Normal : Normal Auscultation: Bowel Sounds: Normal Palpation: Normal Tenderness: Normal Skin: Normal Musculoskeletal: Normal Psychiatric: Normal Mood Description: Calm Affect: Normal Speech Pattern: Clear - Assessment/Plan (1) Syncope Qualifiers: Syncope type: unspecified Qualified Code(s): R55 - Syncope and collapse Status: Acute Plan: ADMIT, OBTAIN ECHO AND CAROTID DOPPLER, NORMAL SALINE AT 80 ML/HR, DUONEBS TID. WE WILL RESUME HER HOME MEDICATIONS OF XANAX, AMIODARONE, ATORVASTATIN, CARVEDILOL, DULOXETINE, FAMOTIDINE, LEVOTHYROXINE, LINZESS, PERCOCET, PROTONIX, REQUIP, BRILINTA, GABAPENTIN, AND ZANAFLEX. (2) Generalized weakness Status: Acute (3) History of recent fall Status: Acute (4) Shortness of breath Status: Acute (5) Atrial fibrillation Qualifiers: Atrial fibrillation type: unspecified Qualified Code(s): I48.91 - Unspecified atrial fibrillation Status: Chronic (6) Benign essential HTN Status: Chronic (7) Anxiety Status: Chronic (8) CAD (coronary artery disease) Qualifiers: Coronary Disease-Associated Artery/Lesion type: [place] artery [place] vs. transplanted heart: [place] heart Status: Chronic (9) GERD (gastroesophageal reflux disease) Qualifiers: Esophagitis presence: esophagitis presence not specified Status: Chronic (10) Hypothyroidism Qualifiers: Hypothyroidism type: acquired Status: Chronic - Allergies Allergies/Adverse Reactions: Allergies Allergy/AdvReac Type Severity Reaction Status Date / Time No Known Drug Allergies Allergy Verified 04/15/23 14:59 - Medications Home Medications: Home Medications Medication Instructions Recorded Confirmed gabapentin 800 mg tablet 800 mg PO BID 09/30/18 12/10/23 (Neurontin) ropinirole 2 mg tablet (Requip) 3 mg PO HS 09/30/18 12/10/23 tizanidine 4 mg capsule (Zanaflex) 4 mg PO BID 09/30/18 12/10/23 apixaban 5 mg tablet (Eliquis) 5 mg PO BID 04/15/23 12/10/23 carvedilol 3.125 mg tablet (Coreg) 3.125 mg PO BID 04/15/23 12/10/23 duloxetine 60 mg capsule,delayed 60 mg PO DAILY 04/15/23 12/10/23 release oxycodone-acetaminophen 10 mg-325 1 tab PO TID PRN 04/15/23 12/10/23 mg tablet ticagrelor 90 mg tablet (Brilinta) 90 mg PO BID 04/15/23 12/10/23 amiodarone 200 mg tablet 200 mg PO QDAY 10/14/23 12/10/23 atorvastatin 40 mg tablet 40 mg PO QPM 10/14/23 12/10/23 levothyroxine 200 mcg tablet 200 mcg PO QDAY 10/14/23 12/10/23 linaclotide 145 mcg capsule 145 mcg PO QDAY 10/14/23 12/10/23 (Linzess) alprazolam 0.25 mg tablet 0.25 mg PO BID 12/10/23 12/10/23 oxycodone-acetaminophen 10 mg-325 1 tab PO TID PRN 12/10/23 12/10/23 mg tablet Previous Rx's Medication Instructions Recorded famotidine 40 mg tablet (Pepcid) 40 mg PO BID #60 tabs 04/17/23 pantoprazole 40 mg tablet,delayed 40 mg PO BID #60 tabs 04/17/23 release (Protonix) ipratropium 0.5 mg-albuterol 3 mg 3 ml NEB TID #60 mL 10/19/23 (2.5 mg base)/3 mL nebulization soln
--- NOTE | 2023-12-11 13:29 | CT ---
EXAM:BRAIN W/O CONHISTORY:SYNCOPE;COMPARISON:None .br.br.br without IV contrast. Coronal and sagittal images were reconstructed. Dose reduction techniques included Automated Exposure Control (AEC) and adjustment of mA and kV.FINDINGS:Age-related findings include central and cortical atrophy with areas of low density in the periventricular white matter compatible with micro-ischemic changes.Otherwise stevens and white matter have normal differentiation. There is no mass, shift, or hemorrhage. Cerebellar tonsils are at an appropriate level.No fluid in the sinuses or mucosal thickening to suggest sinusitis. There is no mastoid effusion.There is an old fracture in the lamina papyracea medial wall right orbit. No calvarium fracture or acute fracture. There is a small hematoma over the left frontal bone. It only measures about 15 mm.IMPRESSION:1. Small scalp hematoma2. No acute finding in the brainTHIS IS AN ELECTRONICALLY VERIFIED FINAL REPORT12/11/2023 1:22 PM - Electronically signed by Teddy Buckley MD
[2023-12-11] MEDS: REQUIP PO SCH (21:10)
[2023-12-11] MEDS: LIPITOR TAB 40 MG PO SCH (21:10)
[2023-12-11] MEDS: ZANAFLEX PO SCH (23:02)
[2023-12-12 05:29] LABS: BASOPHILS % (AUTO) 0.9 % (0.2-1.0); EOSINOPHILS # (AUTO) 0.1 x10^3/uL (0.0-0.2); EOSINOPHILS % (AUTO) 2.6 % (0.9-2.9); HEMATOCRIT 24.2 % (36.0-47.0); HEMOGLOBIN 7.7 g/dL (12.0-16.0); LYMPHOCYTES # (AUTO) 1.5 X10^3/uL (1.3-2.9); LYMPHOCYTES % (AUTO) 33.6 % (21.0-51.0); MEAN CORPUSCULAR HEMOGLOBIN 24.6 pg (27.0-34.0); MEAN CORPUSCULAR VOLUME 76.9 fL (80.0-100.0); MEAN PLATELET VOLUME 7.6 fL (7.4-11.0); MONOCYTES # (AUTO) 0.7 x10^3/uL (0.3-0.8); MONOCYTES % (AUTO) 15.4 % (0.0-13.0); NEUTROPHILS # (AUTO) 2.2 x10^3/uL (2.2-4.8); NEUTROPHILS % (AUTO) 47.5 % (42.0-75.0); PLATELET COUNT 321 X10^3/uL (150.0-450.0); RED BLOOD COUNT 3.14 X10^6/uL (3.5-5.4); RED CELL DISTRIBUTION WIDTH 22.4 % (11.6-16.5); WHITE BLOOD COUNT 4.6 X10^3/uL (3.6-10.0)
[2023-12-12] MEDS: DUONEB 0.5 MG/3 MG (3 mL) NEB SCH ×3 (05:50→21:07)
[2023-12-12 05:52] LABS: ALANINE AMINOTRANSFERASE 35 Units/L (12-78); ALBUMIN 2.4 g/dL (3.4-5.0); ALKALINE PHOSPHATASE 60 Units/L (46-116); ASPARTATE AMINO TRANSFERASE 31 Units/L (15-37); BLOOD UREA NITROGEN 8 mg/dL (7-18); CALCIUM 7.8 mg/dL (8.5-10.1); CARBON DIOXIDE 30.3 mmol/L (21-32); CHLORIDE 108 mmol/L (98-107); COR CA(FOR HYPOALB) 9.1 mg/dL (8.5-10.1); CREATININE 0.77 mg/dL (0.55-1.02); GLUCOSE 71 mg/dL (65-99); POTASSIUM 3.9 mmol/L (3.5-5.1); SODIUM 140 mmol/L (136-145); TOTAL PROTEIN 5.5 g/dL (6.4-8.2); eGFR NON BLACK RACES > 60 (>60)
[2023-12-12 06:03] LABS: HYPOCHROMASIA SLIGHT; PLATELET MORPHOLOGY COMMENT NORMAL (NORMAL)
[2023-12-12 06:04] LABS: ANISOCYTOSIS 2+; BURR CELLS PRESENT; MICROCYTOSIS SLIGHT; OVALOCYTES PRESENT; TARGET CELLS PRESENT
[2023-12-12] MEDS: SYNTHROID 100 mcg TAB PO SCH (08:20)
[2023-12-12] MEDS: CYMBALTA PO SCH (08:20)
[2023-12-12] MEDS: PEPCID TAB 40 MG PO SCH ×2 (08:20→20:49)
[2023-12-12] MEDS: LINZESS PO SCH (08:21)
[2023-12-12] MEDS: BRILINTA PO SCH (08:21)
[2023-12-12] MEDS: ZANAFLEX PO SCH ×2 (08:21→20:50)
[2023-12-12] MEDS: CORDARONE TAB 200 MG PO SCH (08:21)
[2023-12-12] MEDS: COREG TAB 3.125 MG PO SCH ×2 (08:21→20:50)
[2023-12-12] MEDS: PROTONIX TAB 40 MG PO SCH ×2 (08:21→20:49)
[2023-12-12] MEDS: NEURONTIN CAP 300 MG PO SCH ×2 (08:21→20:46)
[2023-12-12] MEDS: XANAX PO SCH ×2 (08:22→20:50)
[2023-12-12] MEDS: NS 1,000 ML IV 1,000 ML IV SCH ×3 (08:22→23:08)
[2023-12-12] MEDS: CIPRO IV 400 MG PREMIX* 400 MG/200 ML IV.SOLN. IV SCH ×2 (13:33→20:45)
[2023-12-12 15:06] LABS: HEMOGLOBIN 7.7 g/dL (12.0-16.0)
[2023-12-12 15:10] LABS: HEMATOCRIT 23.9 % (36.0-47.0)
--- NOTE | 2023-12-12 19:32 | PCM.PROG ---
Progress Note Progress Note for Day of Date of Exam: 12/12/23 Subjective Subjective: The patient reports that she is feeling much better this morning. She has not had any further dizziness or falls since coming to the hospital. I see her hemoglobin is down to 7.7 this morning and yesterday was 8.1. She is not passing any melanotic stool or passing hematochezia. She is not having any epigastric pain. She has GI protection with p.o. Protonix twice daily and Pepcid. We are awaiting her carotid Dopplers report to come back and her echo shows that her ejection fraction is 45%. She also has grade 1 diastolic dysfunction. We will plan to repeat another H&H on her at 3:00 this afternoon to ensure hemoglobin is not dropping further. Continue current treatment and repeat routine labs in the morning. The patient has had her carotid Doppler ultrasound done. We are still currently waiting on the report to come back. Will keep the patient overnight and recheck her routine labs in the morning to make sure her hemoglobin is not dropping and that her generalized weakness is still improving. Past Medical Family Social History Allergies: Allergies No Known Drug Allergies Allergy (Verified 04/15/23 14:59) Review of Systems ROS: No change since H&P Vital Signs and I&O's Vital Signs: Vital Signs Temperature 97.9 F Temperature 97.7 F Pulse Rate [Brachial] 65 Pulse Rate [Brachial] 70 Pulse Rate 67 Respiratory Rate 20 Respiratory Rate 20 Blood Pressure [Right Arm] 126/58 Blood Pressure [Right Arm] 108/57 O2 Sat by Pulse Oximetry 99 O2 Sat by Pulse Oximetry 98 O2 Sat by Pulse Oximetry 98 Intake and Output: Intake & Output 12/09/23 12/10/23 12/11/23 12/12/23 11:59 11:59 11:59 11:59 Intake Total 20067 / 217 Balance 2006 Physical Exam Oriented: Normal Eyes: Normal Ear: Normal Nose: Normal Throat: Normal Respiratory: Diminished Cardiovascular: Normal : Normal Auscultation: Bowel Sounds: Normal Tenderness: Normal Skin: Normal Musculoskeletal: Normal Psychiatric: Normal Mood Description: Calm Affect: Normal Speech Pattern: Clear and Appropriate Laboratory and Diagnostics 12/12/23 14:58 12/12/23 04:51 Labs: Laboratory WBC 4.6 X10^3/uL (3.6-10.0) 12/12/23 04:51 RBC 3.14 X10^6/uL (3.5-5.4) L 12/12/23 04:51 Hgb 7.7 g/dL (12.0-16.0) L 12/12/23 04:51 Hct 24.2 % (36.0-47.0) L 12/12/23 04:51 MCV 76.9 fL (80.0-100.0) L 12/12/23 04:51 MCH 24.6 pg (27.0-34.0) L 12/12/23 04:51 MCHC 32.0 g/dL (33.0-35.0) L 12/12/23 04:51 RDW 22.4 % (11.6-16.5) H 12/12/23 04:51 Plt Count 321 X10^3/uL (150.0-450.0) 12/12/23 04:51 Plt Count Comment Adequate (ADEQUATE) 12/12/23 04:51 MPV 7.6 fL (7.4-11.0) 12/12/23 04:51 Neut % (Auto) 47.5 % (42.0-75.0) 12/12/23 04:51 Lymph % (Auto) 33.6 % (21.0-51.0) 12/12/23 04:51 [place] % (Auto) 15.4 % (0.0-13.0) H 12/12/23 04:51 Eos % (Auto) 2.6 % (0.9-2.9) 12/12/23 04:51 Baso % (Auto) 0.9 % (0.2-1.0) 12/12/23 04:51 Neut # (Auto) 2.2 x10^3/uL (2.2-4.8) 12/12/23 04:51 Lymph # (Auto) 1.5 X10^3/uL (1.3-2.9) 12/12/23 04:51 [place] # (Auto) 0.7 x10^3/uL (0.3-0.8) 12/12/23 04:51 Eos # (Auto) 0.1 x10^3/uL (0.0-0.2) 12/12/23 04:51 Baso # (Auto) 0.0 X10^3/uL (0.0-0.1) 12/12/23 04:51 Absolute Nucleated RBC 0.0 /100WBC 12/12/23 04:51 Plt Morphology Comment Normal (NORMAL) 12/12/23 04:51 RBC Morphology Abnormal (NORMAL) A 12/12/23 04:51 Hypochromasia Slight A 12/12/23 04:51 Anisocytosis 2+ A 12/12/23 04:51 Microcytosis Slight A 12/12/23 04:51 Target Cells Present 12/12/23 04:51 Ovalocytes Present 12/12/23 04:51 [place] Cells Present 12/12/23 04:51 Acanthocytes (Spur) Present 12/12/23 04:51 Schistocytes Slight A 12/11/23 05:27 D-Dimer 0.70 ug/ml (0.0-0.57) H 12/10/23 15:25 Sodium 140 mmol/L (136-145) 12/12/23 04:51 Corrected Sodium TNP 12/12/23 04:51 Potassium 3.9 mmol/L (3.5-5.1) 12/12/23 04:51 Chloride 108 mmol/L (98-107) H 12/12/23 04:51 Carbon Dioxide 30.3 mmol/L (21-32) 12/12/23 04:51 BUN 8 mg/dL (7-18) 12/12/23 04:51 Creatinine 0.77 mg/dL (0.55-1.02) 12/12/23 04:51 Est GFR (MDRD) Af Amer > 60 (>60) 12/12/23 04:51 Est GFR (MDRD) Non-Af > 60 (>60) 12/12/23 04:51 Glucose 71 mg/dL (65-99) 12/12/23 04:51 POC Glucose (mg/dL) 74 mg/dL (65-99) 12/12/23 05:24 Calcium 7.8 mg/dL (8.5-10.1) L 12/12/23 04:51 Corrected Calcium 9.1 mg/dL (8.5-10.1) 12/12/23 04:51 Magnesium 2.0 mg/dL (2.0-2.9) 12/11/23 05:27 Total Bilirubin 0.90 mg/dL (0.2-1.0) 12/12/23 04:51 AST 31 Units/L (15-37) 12/12/23 04:51 ALT 35 Units/L (12-78) 12/12/23 04:51 Alkaline Phosphatase 60 Units/L (46-116) 12/12/23 04:51 Creatine Kinase 124 Units/L (26-192) 12/10/23 15:25 Troponin I High Sens 26.8 ng/L (4.0-60.0) 12/10/23 15:25 B-Natriuretic Peptide 165 pg/mL (0-79) H 12/10/23 15:25 Total Protein 5.5 g/dL (6.4-8.2) L 12/12/23 04:51 Albumin 2.4 g/dL (3.4-5.0) L 12/12/23 04:51 Globulin 3.1 g/dL (2.5-4.5) 12/12/23 04:51 Albumin/Globulin Ratio 0.8 Ratio (1.1-2.1) L 12/12/23 04:51 Specimen Type Clean catch urine 12/10/23 21:37 Urine Color Pale yellow (YELLOW) 12/10/23 21:37 Urine Appearance Clear (CLEAR) 12/10/23 21:37 Urine pH 6.0 (5.0 - 8.0) 12/10/23 21:37 Ur Specific [place] 1.015 (1.000-1.030) 12/10/23 21:37 Urine Protein Negative (NEGATIVE) 12/10/23 21:37 Urine Glucose (UA) Negative (NEGATIVE) 12/10/23 21:37 Urine Ketones Negative (NEGATIVE) 12/10/23 21:37 Urine Blood Negative (NEGATIVE) 12/10/23 21:37 Urine Nitrite Negative (NEGATIVE) 12/10/23 21:37 Urine Bilirubin Negative (NEGATIVE) 12/10/23 21:37 Urine Urobilinogen Normal (NORMAL) 12/10/23 21:37 Ur Leukocyte Esterase Negative (NEGATIVE) 12/10/23 21:37 SARS-CoV-2 (PCR) Negative (NEGATIVE) 12/11/23 10:10 Influenza Type A (PCR) Negative (NEGATIVE) 12/11/23 10:10 Influenza Type B (PCR) Negative (NEGATIVE) 12/11/23 10:10 RSV (PCR) Negative (NEGATIVE) 12/11/23 10:10 Radiology Reviewed: Yes Plan (1) Syncope: Status: Acute Qualifiers: Syncope type: unspecified Qualified Code(s): R55 - Syncope and collapse Plan: ADMIT, OBTAIN ECHO AND CAROTID DOPPLER, NORMAL SALINE AT 80 ML/HR, DUONEBS TID. WE WILL RESUME HER HOME MEDICATIONS OF XANAX, AMIODARONE, ATORVASTATIN, CARVEDILOL, DULOXETINE, FAMOTIDINE, LEVOTHYROXINE, LINZESS, PERCOCET, PROTONIX, REQUIP, BRILINTA, GABAPENTIN, AND ZANAFLEX. (2) Generalized weakness: Status: Acute (3) History of recent fall: Status: Acute (4) Shortness of breath: Status: Acute Plan: The patient's echocardiogram showed that she has grade 1 diastolic dysfunction with an ejection fraction of 45%. (5) Atrial fibrillation: Status: Chronic Qualifiers: Atrial fibrillation type: unspecified Qualified Code(s): I48.91 - Unspecified atrial fibrillation (6) Benign essential HTN: Status: Chronic (7) Anxiety: Status: Chronic (8) CAD (coronary artery disease): Status: Chronic Qualifiers: Coronary Disease-Associated Artery/Lesion type: [place] artery [place] vs. transplanted heart: [place] heart (9) GERD (gastroesophageal reflux disease): Status: Chronic Qualifiers: Esophagitis presence: esophagitis presence not specified (10) Hypothyroidism: Status: Chronic Qualifiers: Hypothyroidism type: acquired
--- NOTE | 2023-12-12 20:39 | VAS ---
PROCEDURE: Carotid Doppler ultrasound. HISTORY: Dyspnea and syncope. TECHNIQUE: Grayscale and color Doppler evaluation was performed of the carotid arteries of the neck b ilaterally. COMPARISON: 10/26/2023 CTA neck. TECHNICAL QUALITY: Satisfactory . FINDINGS: Right side CCA 114 cm/second ICA 123.7 cm/second ECA 62.5 cm/second Right ICA/CCA ratio 1.1. Antegrade vertebral artery flow on the right. Left side CCA 87 cm/second ICA 66.7 cm/second ECA 73 cm/second Left ICA/CCA ratio 0.77. Antegrade vertebral artery flow on the left. IMPRESSION: 1. No elevated velocities or ratio suggesting hemodynamically significant stenosis with the degree of stenosis less than 50 percent bilaterally. 2. Bilateral antegrade vertebral artery flow. Electronically signed by: Attila You (Dec 12, 2023 20:37:53)
[2023-12-12] MEDS: REQUIP PO SCH (20:47)
[2023-12-12] MEDS: LIPITOR TAB 40 MG PO SCH (20:49)
[2023-12-13 05:36] LABS: BASOPHILS % (AUTO) 0.6 % (0.2-1.0); EOSINOPHILS # (AUTO) 0.2 x10^3/uL (0.0-0.2); EOSINOPHILS % (AUTO) 4.7 % (0.9-2.9); HEMATOCRIT 23.4 % (36.0-47.0); HEMOGLOBIN 7.3 g/dL (12.0-16.0); LYMPHOCYTES # (AUTO) 1.3 X10^3/uL (1.3-2.9); MEAN CORPUSCULAR HEMOGLOBIN 24.2 pg (27.0-34.0); MEAN CORPUSCULAR HGB CONC 31.2 g/dL (33.0-35.0); MEAN CORPUSCULAR VOLUME 77.4 fL (80.0-100.0); MEAN PLATELET VOLUME 7.9 fL (7.4-11.0); MONOCYTES # (AUTO) 0.6 x10^3/uL (0.3-0.8); MONOCYTES % (AUTO) 14.8 % (0.0-13.0); NEUTROPHILS % (AUTO) 47.9 % (42.0-75.0); PLATELET COUNT 324 X10^3/uL (150.0-450.0); RED BLOOD COUNT 3.03 X10^6/uL (3.5-5.4); RED CELL DISTRIBUTION WIDTH 22.4 % (11.6-16.5); WHITE BLOOD COUNT 4.2 X10^3/uL (3.6-10.0)
[2023-12-13 05:59] LABS: ALANINE AMINOTRANSFERASE 37 Units/L (12-78); ALBUMIN 2.3 g/dL (3.4-5.0); ALKALINE PHOSPHATASE 57 Units/L (46-116); ASPARTATE AMINO TRANSFERASE 37 Units/L (15-37); BLOOD UREA NITROGEN 11 mg/dL (7-18); CALCIUM 7.8 mg/dL (8.5-10.1); CARBON DIOXIDE 28.6 mmol/L (21-32); CHLORIDE 107 mmol/L (98-107); COR CA(FOR HYPOALB) 9.2 mg/dL (8.5-10.1); CREATININE 0.93 mg/dL (0.55-1.02); GLUCOSE 72 mg/dL (65-99); SODIUM 140 mmol/L (136-145); TOTAL PROTEIN 5.4 g/dL (6.4-8.2); eGFR NON BLACK RACES > 60 (>60)
[2023-12-13 07:26] LABS: ANISOCYTOSIS 2+; HYPOCHROMASIA SLIGHT; MICROCYTOSIS SLIGHT; PLATELET MORPHOLOGY COMMENT NORMAL (NORMAL)
[2023-12-13 07:31] LABS: BURR CELLS PRESENT; OVALOCYTES PRESENT; POIKILOCYTOSIS 1+; TARGET CELLS PRESENT
[2023-12-13] MEDS: DUONEB 0.5 MG/3 MG (3 mL) NEB SCH ×4 (08:00→21:15)
[2023-12-13] MEDS: CIPRO IV 400 MG PREMIX* 400 MG/200 ML IV.SOLN. IV SCH ×2 (09:51→20:25)
[2023-12-13] MEDS: SYNTHROID 100 mcg TAB PO SCH (09:51)
[2023-12-13] MEDS: LINZESS PO SCH (09:51)
[2023-12-13] MEDS: NEURONTIN CAP 300 MG PO SCH ×2 (09:51→20:28)
[2023-12-13] MEDS: PEPCID TAB 40 MG PO SCH ×2 (09:51→20:29)
[2023-12-13] MEDS: XANAX PO SCH ×2 (09:51→20:29)
[2023-12-13] MEDS: CORDARONE TAB 200 MG PO SCH (09:51)
[2023-12-13] MEDS: ZANAFLEX PO SCH ×2 (09:51→20:30)
[2023-12-13] MEDS: COREG TAB 3.125 MG PO SCH ×2 (09:51→20:29)
[2023-12-13] MEDS: CYMBALTA PO SCH (09:52)
[2023-12-13] MEDS: NS 1,000 ML IV 1,000 ML IV SCH ×2 (09:52→23:05)
[2023-12-13] MEDS: PROTONIX TAB 40 MG PO SCH ×2 (09:52→20:30)
[2023-12-13] MEDS ORDERED: DULCOLAX SUPPOSITORY 10 MG RECTAL ONE (11:31)
--- NOTE | 2023-12-13 18:45 | PCM.PROG ---
Progress Note Progress Note for Day of Date of Exam: 12/13/23 Subjective Subjective: The patient reports that she is feeling much better this morning. I see that her hemoglobin has dropped again. Still have not gotten back the Hemoccult we will do. Will give her a Dulcolax positive this morning and try to get a Hemoccult today. I will also check anemia profile to see where she is anemic and treat accordingly. Past Medical Family Social History Allergies: Allergies No Known Drug Allergies Allergy (Verified 04/15/23 14:59) Review of Systems ROS: No change since H&P Vital Signs and I&O's Vital Signs: Vital Signs Temperature 97.8 F Temperature 98.5 F Pulse Rate [Brachial] 68 Pulse Rate [Brachial] 68 Respiratory Rate 18 Respiratory Rate 18 Blood Pressure [Left Arm] 99/50 Blood Pressure [Left Arm] 114/56 O2 Sat by Pulse Oximetry 99 O2 Sat by Pulse Oximetry 98 Intake and Output: Intake & Output 12/11/23 12/12/23 12/13/23 12/14/23 11:59 11:59 11:59 11:59 Intake Total 2006 / 2176 2767 / 2767 1442 / 1442 Balance 2006 2767 / 2767 1442 / 1442 Physical Exam Oriented: Normal Eyes: Normal Ear: Normal Nose: Normal Throat: Normal Respiratory: Diminished Cardiovascular: Normal : Normal Auscultation: Bowel Sounds: Normal Tenderness: Normal Skin: Normal Musculoskeletal: Normal Psychiatric: Normal Mood Description: Calm Affect: Normal Speech Pattern: Clear and Appropriate Laboratory and Diagnostics 12/13/23 04:38 12/13/23 04:38 Labs: 12/10/23 21:37 Urine,Clean Catch Urine Culture - Final Citrobacter Freundii Laboratory WBC 4.2 X10^3/uL (3.6-10.0) 12/13/23 04:38 RBC 3.03 X10^6/uL (3.5-5.4) L 12/13/23 04:38 Hgb 7.3 g/dL (12.0-16.0) L 12/13/23 04:38 Hct 23.4 % (36.0-47.0) L 12/13/23 04:38 MCV 77.4 fL (80.0-100.0) L 12/13/23 04:38 MCH 24.2 pg (27.0-34.0) L 12/13/23 04:38 MCHC 31.2 g/dL (33.0-35.0) L 12/13/23 04:38 RDW 22.4 % (11.6-16.5) H 12/13/23 04:38 Plt Count 324 X10^3/uL (150.0-450.0) 12/13/23 04:38 Plt Count Comment Adequate (ADEQUATE) 12/13/23 04:38 MPV 7.9 fL (7.4-11.0) 12/13/23 04:38 Neut % (Auto) 47.9 % (42.0-75.0) 12/13/23 04:38 Lymph % (Auto) 32.0 % (21.0-51.0) 12/13/23 04:38 [place] % (Auto) 14.8 % (0.0-13.0) H 12/13/23 04:38 Eos % (Auto) 4.7 % (0.9-2.9) H 12/13/23 04:38 Baso % (Auto) 0.6 % (0.2-1.0) 12/13/23 04:38 Neut # (Auto) 2.0 x10^3/uL (2.2-4.8) L 12/13/23 04:38 Lymph # (Auto) 1.3 X10^3/uL (1.3-2.9) 12/13/23 04:38 [place] # (Auto) 0.6 x10^3/uL (0.3-0.8) 12/13/23 04:38 Eos # (Auto) 0.2 x10^3/uL (0.0-0.2) 12/13/23 04:38 Baso # (Auto) 0.0 X10^3/uL (0.0-0.1) 12/13/23 04:38 Absolute Nucleated RBC 0.0 /100WBC 12/13/23 04:38 Plt Morphology Comment Normal (NORMAL) 12/13/23 04:38 RBC Morphology Abnormal (NORMAL) A 12/13/23 04:38 Hypochromasia Slight A 12/13/23 04:38 Poikilocytosis 1+ A 12/13/23 04:38 Anisocytosis 2+ A 12/13/23 04:38 Microcytosis Slight A 12/13/23 04:38 Target Cells Present 12/13/23 04:38 Ovalocytes Present 12/13/23 04:38 [place] Cells Present 12/13/23 04:38 Acanthocytes (Spur) Present 12/13/23 04:38 Schistocytes Slight A 12/11/23 05:27 D-Dimer 0.70 ug/ml (0.0-0.57) H 12/10/23 15:25 Sodium 140 mmol/L (136-145) 12/13/23 04:38 Corrected Sodium TNP 12/13/23 04:38 Potassium 4.0 mmol/L (3.5-5.1) 12/13/23 04:38 Chloride 107 mmol/L (98-107) 12/13/23 04:38 Carbon Dioxide 28.6 mmol/L (21-32) 12/13/23 04:38 BUN 11 mg/dL (7-18) 12/13/23 04:38 Creatinine 0.93 mg/dL (0.55-1.02) 12/13/23 04:38 Est GFR (MDRD) Af Amer > 60 (>60) 12/13/23 04:38 Est GFR (MDRD) Non-Af > 60 (>60) 12/13/23 04:38 Glucose 72 mg/dL (65-99) 12/13/23 04:38 POC Glucose (mg/dL) 79 mg/dL (65-99) 12/13/23 16:53 Calcium 7.8 mg/dL (8.5-10.1) L 12/13/23 04:38 Corrected Calcium 9.2 mg/dL (8.5-10.1) 12/13/23 04:38 Magnesium 2.0 mg/dL (2.0-2.9) 12/11/23 05:27 Iron 26 ug/dL (50-175) L 12/13/23 04:38 TIBC 243 ug/dL (250-450) L 12/13/23 04:38 Transferrin 181 mg/dL (202-364) L 12/13/23 04:38 Ferritin 16 ng/mL (8-252) 12/13/23 04:38 Total Bilirubin 0.90 mg/dL (0.2-1.0) 12/13/23 04:38 AST 37 Units/L (15-37) 12/13/23 04:38 ALT 37 Units/L (12-78) 12/13/23 04:38 Alkaline Phosphatase 57 Units/L (46-116) 12/13/23 04:38 Creatine Kinase 124 Units/L (26-192) 12/10/23 15:25 Troponin I High Sens 26.8 ng/L (4.0-60.0) 12/10/23 15:25 B-Natriuretic Peptide 165 pg/mL (0-79) H 12/10/23 15:25 Total Protein 5.4 g/dL (6.4-8.2) L 12/13/23 04:38 Albumin 2.3 g/dL (3.4-5.0) L 12/13/23 04:38 Globulin 3.1 g/dL (2.5-4.5) 12/13/23 04:38 Albumin/Globulin Ratio 0.7 Ratio (1.1-2.1) L 12/13/23 04:38 Vitamin B12 207 pg/mL (193-986) 12/13/23 04:38 Folate 11.3 ng/mL (>8.6) 12/13/23 04:38 Specimen Type Clean catch urine 12/10/23 21:37 Urine Color Pale yellow (YELLOW) 12/10/23 21:37 Urine Appearance Clear (CLEAR) 12/10/23 21:37 Urine pH 6.0 (5.0 - 8.0) 12/10/23 21:37 Ur Specific [place] 1.015 (1.000-1.030) 12/10/23 21:37 Urine Protein Negative (NEGATIVE) 12/10/23 21:37 Urine Glucose (UA) Negative (NEGATIVE) 12/10/23 21:37 Urine Ketones Negative (NEGATIVE) 12/10/23 21:37 Urine Blood Negative (NEGATIVE) 12/10/23 21:37 Urine Nitrite Negative (NEGATIVE) 12/10/23 21:37 Urine Bilirubin Negative (NEGATIVE) 12/10/23 21:37 Urine Urobilinogen Normal (NORMAL) 12/10/23 21:37 Ur Leukocyte Esterase Negative (NEGATIVE) 12/10/23 21:37 Stl Occult Blood (IFOB) Negative (NEGATIVE) 12/13/23 15:00 SARS-CoV-2 (PCR) Negative (NEGATIVE) 12/11/23 10:10 Influenza Type A (PCR) Negative (NEGATIVE) 12/11/23 10:10 Influenza Type B (PCR) Negative (NEGATIVE) 12/11/23 10:10 RSV (PCR) Negative (NEGATIVE) 12/11/23 10:10 Plan (1) Syncope: Status: Acute Qualifiers: Syncope type: unspecified Qualified Code(s): R55 - Syncope and collapse Plan: ADMIT, OBTAIN ECHO AND CAROTID DOPPLER, NORMAL SALINE AT 80 ML/HR, DUONEBS TID. WE WILL RESUME HER HOME MEDICATIONS OF XANAX, AMIODARONE, ATORVASTATIN, CARVEDILOL, DULOXETINE, FAMOTIDINE, LEVOTHYROXINE, LINZESS, PERCOCET, PROTONIX, REQUIP, BRILINTA, GABAPENTIN, AND ZANAFLEX. (2) Generalized weakness: Status: Acute (3) History of recent fall: Status: Acute (4) Shortness of breath: Status: Acute Plan: The patient's echocardiogram showed that she has grade 1 diastolic dysfunction with an ejection fraction of 45%. (5) Atrial fibrillation: Status: Chronic Qualifiers: Atrial fibrillation type: unspecified Qualified Code(s): I48.91 - Unspecified atrial fibrillation (6) Benign essential HTN: Status: Chronic (7) Anxiety: Status: Chronic (8) CAD (coronary artery disease): Status: Chronic Qualifiers: Coronary Disease-Associated Artery/Lesion type: [place] artery [place] vs. transplanted heart: [place] heart (9) GERD (gastroesophageal reflux disease): Status: Chronic Qualifiers: Esophagitis presence: esophagitis presence not specified (10) Hypothyroidism: Status: Chronic Qualifiers: Hypothyroidism type: acquired
[2023-12-13] MEDS: LIPITOR TAB 40 MG PO SCH (20:27)
[2023-12-13] MEDS: REQUIP PO SCH (20:28)
[2023-12-14] MEDS: NS 1,000 ML IV 1,000 ML IV SCH ×2 (01:15→11:48)
[2023-12-14 04:49] VITALS: RESP 20
[2023-12-14] MEDS: DUONEB 0.5 MG/3 MG (3 mL) NEB SCH ×2 (06:00→14:00)
[2023-12-14 06:13] LABS: BASOPHILS # (AUTO) 0.1 X10^3/uL (0.0-0.1); BASOPHILS % (AUTO) 1.1 % (0.2-1.0); EOSINOPHILS # (AUTO) 0.2 x10^3/uL (0.0-0.2); EOSINOPHILS % (AUTO) 3.6 % (0.9-2.9); HEMATOCRIT 25.7 % (36.0-47.0); HEMOGLOBIN 8.2 g/dL (12.0-16.0); LYMPHOCYTES # (AUTO) 2.2 X10^3/uL (1.3-2.9); LYMPHOCYTES % (AUTO) 46.4 % (21.0-51.0); MEAN CORPUSCULAR HEMOGLOBIN 24.6 pg (27.0-34.0); MEAN CORPUSCULAR HGB CONC 31.8 g/dL (33.0-35.0); MEAN CORPUSCULAR VOLUME 77.3 fL (80.0-100.0); MEAN PLATELET VOLUME 7.7 fL (7.4-11.0); MONOCYTES # (AUTO) 0.5 x10^3/uL (0.3-0.8); MONOCYTES % (AUTO) 10.3 % (0.0-13.0); NEUTROPHILS # (AUTO) 1.8 x10^3/uL (2.2-4.8); NEUTROPHILS % (AUTO) 38.6 % (42.0-75.0); PLATELET COUNT 331 X10^3/uL (150.0-450.0); RED BLOOD COUNT 3.33 X10^6/uL (3.5-5.4); RED CELL DISTRIBUTION WIDTH 22.7 % (11.6-16.5); WHITE BLOOD COUNT 4.8 X10^3/uL (3.6-10.0)
[2023-12-14 06:19] VITALS: O2SAT 96
[2023-12-14 06:43] LABS: ALANINE AMINOTRANSFERASE 50 Units/L (12-78); ALBUMIN 2.7 g/dL (3.4-5.0); ALKALINE PHOSPHATASE 70 Units/L (46-116); ASPARTATE AMINO TRANSFERASE 55 Units/L (15-37); BLOOD UREA NITROGEN 10 mg/dL (7-18); CALCIUM 8.1 mg/dL (8.5-10.1); CARBON DIOXIDE 28.3 mmol/L (21-32); CHLORIDE 107 mmol/L (98-107); COR CA(FOR HYPOALB) 9.1 mg/dL (8.5-10.1); CREATININE 0.92 mg/dL (0.55-1.02); GLUCOSE 71 mg/dL (65-99); POTASSIUM 4.2 mmol/L (3.5-5.1); SODIUM 142 mmol/L (136-145); TOTAL PROTEIN 6.2 g/dL (6.4-8.2); eGFR NON BLACK RACES > 60 (>60)
[2023-12-14 07:47] LABS: ANISOCYTOSIS 2+; PLATELET MORPHOLOGY COMMENT NORMAL (NORMAL)
[2023-12-14 07:48] LABS: MICROCYTOSIS SLIGHT; TARGET CELLS SLIGHT
[2023-12-14 08:30] VITALS: BP 147/63; TEMP 98.4
[2023-12-14] MEDS: CIPRO IV 400 MG PREMIX* 400 MG/200 ML IV.SOLN. IV SCH (08:58)
[2023-12-14] MEDS: CORDARONE TAB 200 MG PO SCH (08:58)
[2023-12-14] MEDS: CYMBALTA PO SCH (08:59)
[2023-12-14] MEDS: PEPCID TAB 40 MG PO SCH (08:59)
[2023-12-14] MEDS: NEURONTIN CAP 300 MG PO SCH (08:59)
[2023-12-14] MEDS: LINZESS PO SCH (08:59)
[2023-12-14] MEDS: COREG TAB 3.125 MG PO SCH (08:59)
[2023-12-14] MEDS: XANAX PO SCH (09:00)
[2023-12-14] MEDS: PROTONIX TAB 40 MG PO SCH (09:00)
[2023-12-14] MEDS: SYNTHROID 100 mcg TAB PO SCH (09:00)
[2023-12-14] MEDS: ZANAFLEX PO SCH (09:00)
[2023-12-14 15:00] VITALS: PULSE 72
[2023-12-14] MEDS ORDERED: ALPRAZOLAM ODT PO SCH (21:00)
== END 2023-12-14 15:15 | disposition home health service (06) ==
LOC: MED/SURG
PROVIDERS: ADMIT Internal Medicine; ATTEND Internal Medicine
DX: W18.39XA Other fall on same level, initial encounter; R55 Syncope and collapse; I10 Essential (primary) hypertension; M79.89 Other specified soft tissue disorders; Y92.9 Unspecified place or not applicable; F41.8 Other specified anxiety disorders; Z20.822 Contact with and (suspected) exposure to COVID-19; S00.03XA Contusion of scalp, initial encounter; K21.9 Gastro-esophageal reflux disease without esophagitis; I25.10 Atherosclerotic heart disease of native coronary artery without angina pectoris; E03.8 Other specified hypothyroidism; R26.89 Other abnormalities of gait and mobility; B96.89 Other specified bacterial agents as the cause of diseases classified elsewhere; R53.1 Weakness; E11.65 Type 2 diabetes mellitus with hyperglycemia; M25.532 Pain in left wrist; R06.02 Shortness of breath; I48.91 Unspecified atrial fibrillation; Z91.81 History of falling

== ENCOUNTER 2024-04-19 13:50 | Observation (INO) ==
--- NOTE | 2024-04-19 16:23 | EKG ---
Test Reason : sob Blood Pressure : */* mmHG Vent. Rate : 68 BPM Atrial Rate : 68 BPM P-R Int : 144 ms QRS Dur : 80 ms QT Int : 408 ms P-R-T Axes : 64 -10 23 degrees QTc Int : 433 ms Normal sinus rhythm Anterior infarct (cited on or before 10-DEC-2023) Abnormal ECG When compared with ECG of 10-DEC-2023 16:09, Nonspecific T wave abnormality, improved in Anterolateral leads Confirmed by Corby Wright MD ([id number]) on 04/20/2024 7:29:56 AM Referred By: Confirmed By: Corby Wright MD
[2024-04-19] MEDS: NS 1,000 ML IV 1,000 ML IV SCH (16:31)
[2024-04-19] MEDS: PROTONIX INJ 40 MG VIAL IVP SCH (16:36)
[2024-04-19 17:47] LABS: EOSINOPHILS # (AUTO) 0.1 x10^3/uL (0.0-0.2); MONOCYTES # (AUTO) 0.5 x10^3/uL (0.3-0.8); NEUTROPHILS # (AUTO) 2.2 x10^3/uL (2.2-4.8)
[2024-04-19 17:59] LABS: ALANINE AMINOTRANSFERASE 41 Units/L (12-78); ALBUMIN 2.9 g/dL (3.4-5.0); ALKALINE PHOSPHATASE 66 Units/L (46-116); ASPARTATE AMINO TRANSFERASE 28 Units/L (15-37); BASOPHILS % (AUTO) 0.5 % (0.2-1.0); BLOOD UREA NITROGEN 14 mg/dL (7-18); CALCIUM 7.9 mg/dL (8.5-10.1); CARBON DIOXIDE 30.4 mmol/L (21-32); CHLORIDE 109 mmol/L (98-107); COR CA(FOR HYPOALB) 8.8 mg/dL (8.5-10.1); CREATININE 1.15 mg/dL (0.55-1.02); EOSINOPHILS % (AUTO) 2.4 % (0.9-2.9); GLUCOSE 66 mg/dL (65-99); HEMATOCRIT 21.2 % (36.0-47.0); LYMPHOCYTES # (AUTO) 2.2 X10^3/uL (1.3-2.9); LYMPHOCYTES % (AUTO) 42.9 % (21.0-51.0); MEAN CORPUSCULAR HGB CONC 32.3 g/dL (33.0-35.0); MEAN CORPUSCULAR VOLUME 77.5 fL (80.0-100.0); MONOCYTES % (AUTO) 10.6 % (0.0-13.0); NEUTROPHILS % (AUTO) 43.6 % (42.0-75.0); PLATELET COUNT 340 X10^3/uL (150.0-450.0); POTASSIUM 3.9 mmol/L (3.5-5.1); RED BLOOD COUNT 2.73 X10^6/uL (3.5-5.4); RED CELL DISTRIBUTION WIDTH 20.6 % (11.6-16.5); SODIUM 144 mmol/L (136-145); TOTAL PROTEIN 6.2 g/dL (6.4-8.2); eGFR NON BLACK RACES 49 (>60)
--- NOTE | 2024-04-19 18:02 | RAD ---
EXAM:CHEST, 1 VIEWHISTORY:SOB;COMPARISON:December 10, 2023TECHNIQUE:Chest radiographic imaging, AP portable projection, 1 imageFINDINGS:No cardiomegaly.No focal airspace disease.No pleural effusion.No pneumothorax.No acute osseous abnormality.IMPRESSION:No imaging findings of acute cardiopulmonary disease.THIS IS AN ELECTRONICALLY VERIFIED FINAL REPORT04/19/2024 5:59 PM - Electronically signed by Kiran Hill MD
[2024-04-19 18:22] LABS: HEMOGLOBIN 6.8 g/dL (12.0-16.0)
[2024-04-19 18:43] LABS: HYPOCHROMASIA SLIGHT; PLATELET MORPHOLOGY COMMENT NORMAL (NORMAL); POIKILOCYTOSIS 2+
[2024-04-19 18:44] LABS: ANISOCYTOSIS 1+; BURR CELLS PRESENT; MICROCYTOSIS SLIGHT; SCHISTOCYTES PRESENT; TARGET CELLS PRESENT
[2024-04-19] MEDS: PROVENTIL NEB TX 0.083% 2.5MG/ 3ML NEB SCH (20:21)
[2024-04-19] MEDS: PULMICORT NEB TX 0.5 MG NEB SCH (20:21)
[2024-04-20] MEDS: NS 500 ML IV 500 ML IV ONE (05:32)
[2024-04-20 05:48] LABS: BASOPHILS # (AUTO) 0.1 X10^3/uL (0.0-0.1); BASOPHILS % (AUTO) 1.4 % (0.2-1.0); EOSINOPHILS # (AUTO) 0.1 x10^3/uL (0.0-0.2); EOSINOPHILS % (AUTO) 2.4 % (0.9-2.9); HEMATOCRIT 26.5 % (36.0-47.0); HEMOGLOBIN 8.7 g/dL (12.0-16.0); LYMPHOCYTES # (AUTO) 2.5 X10^3/uL (1.3-2.9); LYMPHOCYTES % (AUTO) 44.8 % (21.0-51.0); MEAN CORPUSCULAR HEMOGLOBIN 26.2 pg (27.0-34.0); MEAN CORPUSCULAR HGB CONC 32.9 g/dL (33.0-35.0); MEAN CORPUSCULAR VOLUME 79.6 fL (80.0-100.0); MEAN PLATELET VOLUME 7.6 fL (7.4-11.0); MONOCYTES # (AUTO) 0.5 x10^3/uL (0.3-0.8); MONOCYTES % (AUTO) 9.5 % (0.0-13.0); NEUTROPHILS # (AUTO) 2.3 x10^3/uL (2.2-4.8); NEUTROPHILS % (AUTO) 41.9 % (42.0-75.0); PLATELET COUNT 284 X10^3/uL (150.0-450.0); RED BLOOD COUNT 3.33 X10^6/uL (3.5-5.4); WHITE BLOOD COUNT 5.5 X10^3/uL (3.6-10.0)
[2024-04-20 06:08] LABS: ALANINE AMINOTRANSFERASE 32 Units/L (12-78); ALBUMIN 2.4 g/dL (3.4-5.0); ALKALINE PHOSPHATASE 60 Units/L (46-116); ASPARTATE AMINO TRANSFERASE 26 Units/L (15-37); BLOOD UREA NITROGEN 13 mg/dL (7-18); CALCIUM 7.8 mg/dL (8.5-10.1); CARBON DIOXIDE 31.3 mmol/L (21-32); CHLORIDE 111 mmol/L (98-107); COR CA(FOR HYPOALB) 9.1 mg/dL (8.5-10.1); GLUCOSE 78 mg/dL (65-99); POTASSIUM 4.1 mmol/L (3.5-5.1); SODIUM 144 mmol/L (136-145); TOTAL PROTEIN 5.5 g/dL (6.4-8.2); eGFR NON BLACK RACES 52 (>60)
--- NOTE | 2024-04-20 08:34 | DR.H&P ---
H&P History & Physical for Day of: H&P Date: 04/20/24 Chief Complaint Chief Complaint: melena weakness History of Present Illness History of Present Illness: Patient is a 73-year-old female that was presenting with blood in stool that started on Thursday. She reports multiple episodes of melena. She reports also feeling weak and dizzy. Labs/imaging: WBC 5.5, hemoglobin 6.88.7, platelets 284, sodium 144, potassium 4.1, creatinine 1.10, glucose 78. Patient was admitted for GI bleed, generalized weakness, symptomatic anemia. Will keep patient NPO. She does take Eliquis and Brilinta at home that we are holding. Continue with IV fluids and IV Protonix. Patient was transfused 2 units of packed red blood cells. Her hemoglobin is now 8.7. General surgery was consulted and will plan for EGD this morning. Continue to closely monitor and follow-up labs/imaging. Past Medical History Past Medical History: Anxiety, Arthritis, Depression, Diabetes, Dyslipidemia, Hypertension, Hypothyroidism and Sleep Apnea Past Surgical History Surgical History: Cholecystectomy and Ortho Surgery Additional Surgical History: History of Gastric bypass Family History Family Medical History: Cancer (Ovarian); denies Diabetes Mellitus, [place], Coronary Artery Disease, Heart Failure, Sudden Cardiac or Hypertension Social History Alcohol Use: None Drug Use: None Medications Home Medications: Home Medications Medication Instructions Recorded Confirmed Type ropinirole 2 mg tablet (Requip) 3 mg PO HS 09/30/18 12/10/23 History apixaban 5 mg tablet (Eliquis) 5 mg PO BID 04/15/23 12/10/23 History carvedilol 3.125 mg tablet (Coreg) 3.125 mg PO BID 04/15/23 12/10/23 History duloxetine 60 mg capsule,delayed 60 mg PO DAILY 04/15/23 12/10/23 History release oxycodone-acetaminophen 10 mg-325 1 tab PO TID PRN 04/15/23 12/10/23 History mg tablet ticagrelor 90 mg tablet (Brilinta) 90 mg PO BID 04/15/23 12/10/23 History amiodarone 200 mg tablet 200 mg PO QDAY 10/14/23 12/10/23 History atorvastatin 40 mg tablet 40 mg PO QPM 10/14/23 12/10/23 History levothyroxine 200 mcg tablet 200 mcg PO QDAY 10/14/23 12/10/23 History linaclotide 145 mcg capsule 145 mcg PO QDAY 10/14/23 12/10/23 History ([place]) alprazolam 0.25 mg tablet 0.25 mg PO BID 12/10/23 12/10/23 History oxycodone-acetaminophen 10 mg-325 1 tab PO TID PRN 12/10/23 12/10/23 History mg tablet Allergies Allergies Allergy/AdvReac Type Severity Reaction Status Date / Time No Known Drug Allergies Allergy Verified 04/19/24 16:52 Labs 04/20/24 05:25 04/20/24 05:25 Labs: Laboratory WBC 5.5 X10^3/uL (3.6-10.0) 04/20/24 05:25 RBC 3.33 X10^6/uL (3.5-5.4) L 04/20/24 05:25 Hgb 8.7 g/dL (12.0-16.0) L 04/20/24 05:25 Hgb Cancelled 04/20/24 05:25 Hct 26.5 % (36.0-47.0) L 04/20/24 05:25 Hct Cancelled 04/20/24 05:25 MCV 79.6 fL (80.0-100.0) L 04/20/24 05:25 MCH 26.2 pg (27.0-34.0) L 04/20/24 05:25 MCHC 32.9 g/dL (33.0-35.0) L 04/20/24 05:25 RDW 19.0 % (11.6-16.5) H 04/20/24 05:25 Plt Count 284 X10^3/uL (150.0-450.0) 04/20/24 05:25 Plt Count Comment Adequate (ADEQUATE) 04/19/24 17:29 MPV 7.6 fL (7.4-11.0) 04/20/24 05:25 Neut % (Auto) 41.9 % (42.0-75.0) L 04/20/24 05:25 Lymph % (Auto) 44.8 % (21.0-51.0) 04/20/24 05:25 [place] % (Auto) 9.5 % (0.0-13.0) 04/20/24 05:25 Eos % (Auto) 2.4 % (0.9-2.9) 04/20/24 05:25 Baso % (Auto) 1.4 % (0.2-1.0) H 04/20/24 05:25 Neut # (Auto) 2.3 x10^3/uL (2.2-4.8) 04/20/24 05:25 Lymph # (Auto) 2.5 X10^3/uL (1.3-2.9) 04/20/24 05:25 [place] # (Auto) 0.5 x10^3/uL (0.3-0.8) 04/20/24 05:25 Eos # (Auto) 0.1 x10^3/uL (0.0-0.2) 04/20/24 05:25 Baso # (Auto) 0.1 X10^3/uL (0.0-0.1) 04/20/24 05:25 Absolute Nucleated RBC 0.1 /100WBC 04/20/24 05:25 Plt Morphology Comment Normal (NORMAL) 04/19/24 17:29 RBC Morphology Abnormal (NORMAL) A 04/19/24 17:29 Hypochromasia Slight A 04/19/24 17:29 Poikilocytosis 2+ A 04/19/24 17:29 Anisocytosis 1+ A 04/19/24 17:29 Microcytosis Slight A 04/19/24 17:29 Target Cells Present 04/19/24 17:29 [place] Cells Present 04/19/24 17:29 Schistocytes Present 04/19/24 17:29 Sodium 144 mmol/L (136-145) 04/20/24 05:25 Corrected Sodium TNP 04/20/24 05:25 Potassium 4.1 mmol/L (3.5-5.1) 04/20/24 05:25 Chloride 111 mmol/L (98-107) H 04/20/24 05:25 Carbon Dioxide 31.3 mmol/L (21-32) 04/20/24 05:25 BUN 13 mg/dL (7-18) 04/20/24 05:25 Creatinine 1.10 mg/dL (0.55-1.02) H 04/20/24 05:25 Est GFR (MDRD) Af Amer > 60 (>60) 04/20/24 05:25 Est GFR (MDRD) Non-Af 52 (>60) L 04/20/24 05:25 Glucose 78 mg/dL (65-99) 04/20/24 05:25 Calcium 7.8 mg/dL (8.5-10.1) L 04/20/24 05:25 Corrected Calcium 9.1 mg/dL (8.5-10.1) 04/20/24 05:25 Total Bilirubin 2.50 mg/dL (0.2-1.0) H 04/20/24 05:25 AST 26 Units/L (15-37) 04/20/24 05:25 ALT 32 Units/L (12-78) 04/20/24 05:25 Alkaline Phosphatase 60 Units/L (46-116) 04/20/24 05:25 Troponin I High Sens < 4.0 ng/L (4.0-60.0) L 04/19/24 17:10 Total Protein 5.5 g/dL (6.4-8.2) L 04/20/24 05:25 Albumin 2.4 g/dL (3.4-5.0) L 04/20/24 05:25 Globulin 3.1 g/dL (2.5-4.5) 04/20/24 05:25 Albumin/Globulin Ratio 0.8 Ratio (1.1-2.1) L 04/20/24 05:25 Blood Type O POSITIVE 04/19/24 17:29 Antibody Screen Negative 04/19/24 17:25 Crossmatch See Detail 04/19/24 17:25 Review of Systems Constitutional: Weakness Eyes: No Symptoms Reported ENT: No Symptoms Reported Respiratory: No Symptoms Reported Cardiovascular: No Symptoms Reported Gastrointestinal: Melena Genitourinary: No Symptoms Reported Musculoskeletal: No Symptoms Reported Skin: No Symptoms Reported Neurological: No Symptoms Reported Physical Exam Vital Signs: Vital Signs Temperature 98.4 F Pulse Rate [Left Radial] 65 Respiratory Rate 20 Blood Pressure [Right Arm] 125/60 O2 Sat by Pulse Oximetry 100 Oriented: Normal Eyes: Normal Ear: Normal Nose: Normal Throat: Normal Respiratory: Clear Throughout Cardiovascular: Normal : Normal Auscultation: Bowel Sounds: Normal Palpation: Normal Tenderness: Normal Skin: Normal Musculoskeletal: Normal Psychiatric: Normal Mood Description: Calm and Appropriate Affect: Normal Speech Pattern: Clear and Appropriate Assessment/Plan (1) GI bleed: Narrative Support Text: NPO, IVF, PPI, consult general surgery-plan for EGD. s/p 2 units prbc, trend hgb Status: Acute (2) Symptomatic anemia: Status: Acute Review H&P Reviewed: Yes Patient was examined?: Yes
[2024-04-20] MEDS: NS 1,000 ML IV 1,000 ML ONE (10:03)
[2024-04-20] MEDS: DIPRIVAN VIAL 20 ML ONE (10:50)
[2024-04-20] MEDS ORDERED: PATIENT'S HOME MEDICATION (Oxycodone-Acetaminophen 10-325 mg tablet) PO PRN (18:43)
[2024-04-20] MEDS ORDERED: PERCOCET TAB 5/325 MG PO PRN (19:01)
[2024-04-20] MEDS ORDERED: ROXICODONE TAB 5 MG PO PRN (19:02)
[2024-04-20] MEDS ORDERED: ROPINIROLE 2 MG PO SCH (21:00)
[2024-04-20] MEDS ORDERED: PATIENT'S HOME MEDICATION (Alprazolam 0.25 mg tablet) PO SCH (21:00)
[2024-04-20] MEDS: ELIQUIS PO SCH (21:49)
[2024-04-20] MEDS: ALPRAZOLAM ODT PO SCH (21:50)
[2024-04-20] MEDS: LIPITOR TAB 40 MG PO SCH (21:51)
[2024-04-20] MEDS: COREG TAB 3.125 MG PO SCH (21:51)
[2024-04-20] MEDS: CORDARONE TAB 200 MG PO SCH (21:51)
[2024-04-20] MEDS: PEPCID TAB 40 MG PO SCH (21:51)
[2024-04-20] MEDS: REQUIP PO SCH (21:51)
[2024-04-20] MEDS: NEURONTIN CAP 300 MG PO SCH (21:56)
[2024-04-21] MEDS: SYNTHROID 100 mcg TAB PO SCH (05:35)
[2024-04-21 06:00] VITALS: O2SAT 96
[2024-04-21 06:38] LABS: ALANINE AMINOTRANSFERASE 35 Units/L (12-78); ALBUMIN 2.4 g/dL (3.4-5.0); ALKALINE PHOSPHATASE 52 Units/L (46-116); ASPARTATE AMINO TRANSFERASE 30 Units/L (15-37); BLOOD UREA NITROGEN 9 mg/dL (7-18); CALCIUM 7.8 mg/dL (8.5-10.1); CARBON DIOXIDE 31.5 mmol/L (21-32); CHLORIDE 110 mmol/L (98-107); COR CA(FOR HYPOALB) 9.1 mg/dL (8.5-10.1); CREATININE 0.96 mg/dL (0.55-1.02); GLUCOSE 74 mg/dL (65-99); POTASSIUM 3.9 mmol/L (3.5-5.1); SODIUM 144 mmol/L (136-145); TOTAL PROTEIN 5.3 g/dL (6.4-8.2); eGFR NON BLACK RACES > 60 (>60)
[2024-04-21 06:45] LABS: BASOPHILS % (AUTO) 0.4 % (0.2-1.0); EOSINOPHILS # (AUTO) 0.2 x10^3/uL (0.0-0.2); EOSINOPHILS % (AUTO) 3.2 % (0.9-2.9); HEMATOCRIT 26.4 % (36.0-47.0); HEMOGLOBIN 8.7 g/dL (12.0-16.0); LYMPHOCYTES # (AUTO) 2.9 X10^3/uL (1.3-2.9); MEAN CORPUSCULAR HEMOGLOBIN 26.2 pg (27.0-34.0); MEAN CORPUSCULAR HGB CONC 32.9 g/dL (33.0-35.0); MEAN CORPUSCULAR VOLUME 79.5 fL (80.0-100.0); MEAN PLATELET VOLUME 7.9 fL (7.4-11.0); MONOCYTES # (AUTO) 0.7 x10^3/uL (0.3-0.8); MONOCYTES % (AUTO) 10.4 % (0.0-13.0); NEUTROPHILS # (AUTO) 2.5 x10^3/uL (2.2-4.8); PLATELET COUNT 300 X10^3/uL (150.0-450.0); RED BLOOD COUNT 3.32 X10^6/uL (3.5-5.4); RED CELL DISTRIBUTION WIDTH 18.7 % (11.6-16.5); WHITE BLOOD COUNT 6.3 X10^3/uL (3.6-10.0)
[2024-04-21] MEDS ORDERED: PATIENT'S HOME MEDICATION (Levothyroxine 200 mcg tablet) PO SCH (09:00)
[2024-04-21] MEDS: HEMOCYTE-PLUS PO SCH (09:00)
[2024-04-21] MEDS ORDERED: PATIENT'S HOME MEDICATION (Mv-Mins No.73-Iron Fum-Folic [Hemocyte-Plus] 106 mg iron- 1 mg PO SCH (09:00)
[2024-04-21] MEDS: CYMBALTA PO SCH (09:01)
[2024-04-21 09:38] VITALS: BP 144/65; PULSE 65; RESP 20; TEMP 97.8
--- NOTE | 2024-04-21 09:56 | W.DIS.FURT ---
Summary of Discharge Discharge Summary of Date Date of Exam: 04/21/24 Admission Date Date of Admission: 04/19/24 Admission Diagnosis Hospital Course: Patient is a 73-year-old female admitted for GI bleed, generalized weakness, symptomatic anemia. Her hospital/treatment course included:IV fluids and IV Protonix. Patient was transfused 2 units of packed red blood cells. Her hemoglobin stablized at 8.7. General surgery was consulted and EGD did not reveal any sources of bleeding. Pt had no more episodes of melena. She was restarted on Eliquis and instructed to stop Brilinta until she sees her pcp and board filler-Dr Corado. Pt was discharged in stable condition, instructed to follow up with pcp, general surgery, and cardiology outpatient. Vital Signs: Vital Signs (72 hours) 04/19/24 16:28 04/19/24 15:36 04/19/24 15:40 Temperature 98.6 F Pulse Rate Pulse Rate [Left Radial] 70 Respiratory Rate 18 Blood Pressure [Right Arm] 105/55 O2 Sat by Pulse Oximetry 97 Oxygen Delivery Method Nasal Cannula Nasal Cannula Room Air Oxygen Flow Rate 2 2 FIO2% 28 04/19/24 19:00 04/19/24 20:21 04/19/24 20:21 Temperature Pulse Rate 64 Pulse Rate [Left Radial] Respiratory Rate Blood Pressure [Right Arm] O2 Sat by Pulse Oximetry 98 Oxygen Delivery Method Nasal Cannula Nasal Cannula Oxygen Flow Rate 2 FIO2% 04/19/24 20:00 04/20/24 00:00 04/20/24 04:00 Temperature 98.0 F 98.6 F 98.4 F Pulse Rate Pulse Rate [Left Radial] 74 70 65 Respiratory Rate 20 20 20 Blood Pressure [Right Arm] 117/59 115/58 125/60 O2 Sat by Pulse Oximetry 100 100 100 Oxygen Delivery Method Room Air Room Air Room Air Oxygen Flow Rate FIO2% 04/20/24 08:54 04/20/24 08:00 04/20/24 10:25 Temperature 98.4 F 97.9 F Pulse Rate Pulse Rate [Left Radial] 58 L 73 Respiratory Rate 18 20 Blood Pressure [Right Arm] 130/66 112/56 O2 Sat by Pulse Oximetry 99 99 Oxygen Delivery Method Nasal Cannula Room Air Oxygen Flow Rate FIO2% 04/20/24 10:40 04/20/24 10:55 04/20/24 11:10 Temperature 98 F 98.1 F 98.3 F Pulse Rate Pulse Rate [Left Radial] 67 69 60 Respiratory Rate 20 20 20 Blood Pressure [Right Arm] 116/57 122/58 124/66 O2 Sat by Pulse Oximetry 98 97 96 Oxygen Delivery Method Oxygen Flow Rate FIO2% 04/20/24 11:25 04/20/24 12:25 04/20/24 13:25 Temperature 98.3 F 98.5 F 98.4 F Pulse Rate Pulse Rate [Left Radial] 73 60 70 Respiratory Rate 20 20 20 Blood Pressure [Right Arm] 129/67 114/56 128/61 O2 Sat by Pulse Oximetry 98 98 99 Oxygen Delivery Method Oxygen Flow Rate FIO2% 04/20/24 14:25 04/20/24 16:00 04/20/24 19:00 Temperature 98.9 F 98.1 F Pulse Rate Pulse Rate [Left Radial] 65 59 L Respiratory Rate 20 18 Blood Pressure [Right Arm] 156/63 134/68 O2 Sat by Pulse Oximetry 100 100 Oxygen Delivery Method Room Air Nasal Cannula Oxygen Flow Rate FIO2% 04/20/24 20:00 04/21/24 00:00 04/20/24 21:45 Temperature 99.0 F 98.4 F Pulse Rate Pulse Rate [Left Radial] 65 84 Respiratory Rate 19 18 Blood Pressure [Right Arm] 113/60 130/61 O2 Sat by Pulse Oximetry 96 97 Oxygen Delivery Method Room Air Oxygen Flow Rate FIO2% 04/20/24 21:45 04/21/24 04:00 04/21/24 08:37 Temperature 97.9 F Pulse Rate 71 Pulse Rate [Left Radial] 69 Respiratory Rate 18 Blood Pressure [Right Arm] 118/60 O2 Sat by Pulse Oximetry 99 96 Oxygen Delivery Method Room Air Oxygen Flow Rate FIO2% Labs: Laboratory Last Values WBC 6.3 X10^3/uL (3.6-10.0) 04/21/24 05:38 RBC 3.32 X10^6/uL (3.5-5.4) L 04/21/24 05:38 Hgb 8.7 g/dL (12.0-16.0) L 04/21/24 05:38 Hct 26.4 % (36.0-47.0) L 04/21/24 05:38 MCV 79.5 fL (80.0-100.0) L 04/21/24 05:38 MCH 26.2 pg (27.0-34.0) L 04/21/24 05:38 MCHC 32.9 g/dL (33.0-35.0) L 04/21/24 05:38 RDW 18.7 % (11.6-16.5) H 04/21/24 05:38 Plt Count 300 X10^3/uL (150.0-450.0) 04/21/24 05:38 Plt Count Comment Adequate (ADEQUATE) 04/19/24 17:29 MPV 7.9 fL (7.4-11.0) 04/21/24 05:38 Neut % (Auto) 40.0 % (42.0-75.0) L 04/21/24 05:38 Lymph % (Auto) 46.0 % (21.0-51.0) 04/21/24 05:38 Hickman % (Auto) 10.4 % (0.0-13.0) 04/21/24 05:38 Eos % (Auto) 3.2 % (0.9-2.9) H 04/21/24 05:38 Baso % (Auto) 0.4 % (0.2-1.0) 04/21/24 05:38 Neut # (Auto) 2.5 x10^3/uL (2.2-4.8) 04/21/24 05:38 Lymph # (Auto) 2.9 X10^3/uL (1.3-2.9) 04/21/24 05:38 Hickman # (Auto) 0.7 x10^3/uL (0.3-0.8) 04/21/24 05:38 Eos # (Auto) 0.2 x10^3/uL (0.0-0.2) 04/21/24 05:38 Baso # (Auto) 0.0 X10^3/uL (0.0-0.1) 04/21/24 05:38 Absolute Nucleated RBC 0.1 /100WBC 04/21/24 05:38 Plt Morphology Comment Normal (NORMAL) 04/19/24 17:29 RBC Morphology Abnormal (NORMAL) A 04/19/24 17:29 Hypochromasia Slight A 04/19/24 17:29 Poikilocytosis 2+ A 04/19/24 17:29 Anisocytosis 1+ A 04/19/24 17:29 Microcytosis Slight A 04/19/24 17:29 Target Cells Present 04/19/24 17:29 Johnny Cells Present 04/19/24 17:29 Schistocytes Present 04/19/24 17:29 Sodium 144 mmol/L (136-145) 04/21/24 05:38 Corrected Sodium TNP 04/21/24 05:38 Potassium 3.9 mmol/L (3.5-5.1) 04/21/24 05:38 Chloride 110 mmol/L (98-107) H 04/21/24 05:38 Carbon Dioxide 31.5 mmol/L (21-32) 04/21/24 05:38 BUN 9 mg/dL (7-18) 04/21/24 05:38 Creatinine 0.96 mg/dL (0.55-1.02) 04/21/24 05:38 Est GFR (MDRD) Af Amer > 60 (>60) 04/21/24 05:38 Est GFR (MDRD) Non-Af > 60 (>60) 04/21/24 05:38 Glucose 74 mg/dL (65-99) 04/21/24 05:38 Calcium 7.8 mg/dL (8.5-10.1) L 04/21/24 05:38 Corrected Calcium 9.1 mg/dL (8.5-10.1) 04/21/24 05:38 Total Bilirubin 1.60 mg/dL (0.2-1.0) H 04/21/24 05:38 AST 30 Units/L (15-37) 04/21/24 05:38 ALT 35 Units/L (12-78) 04/21/24 05:38 Alkaline Phosphatase 52 Units/L (46-116) 04/21/24 05:38 Troponin I High Sens < 4.0 ng/L (4.0-60.0) L 04/19/24 17:10 Total Protein 5.3 g/dL (6.4-8.2) L 04/21/24 05:38 Albumin 2.4 g/dL (3.4-5.0) L 04/21/24 05:38 Globulin 2.9 g/dL (2.5-4.5) 04/21/24 05:38 Albumin/Globulin Ratio 0.8 Ratio (1.1-2.1) L 04/21/24 05:38 Stl Occult Blood (IFOB) Positive (NEGATIVE) A 04/20/24 08:16 Blood Type O POSITIVE 04/19/24 17:29 Antibody Screen Negative 04/19/24 17:25 Crossmatch See Detail 04/19/24 17:25 Reason For Visit: ANEMIA, MELENA Discharge Date Discharge Date: 04/21/24 Discharge Diagnosis All Active Problems (Updated 04/20/24 @ 08:34 by Joss Mtz) Symptomatic anemia (Acute) GI bleed (Acute) Atrial fibrillation with RVR (Acute) Benign essential HTN (Chronic) DM (diabetes mellitus) (Chronic) Anxiety (Chronic) D-dimer, elevated (Acute) COVID-19 (Acute) Acute bronchitis (Acute) CAD (coronary artery disease) (Chronic) GERD (gastroesophageal reflux disease) (Chronic) Hypothyroidism (Chronic) Syncope (Acute) History of recent fall (Acute) Generalized weakness (Acute) Shortness of breath (Acute) Atrial fibrillation (Chronic) Plan of Treatment: Continue with present treatment and follow up plan. Pt is to keep follow up appointment as instructed and take medications as ordered. Discharge Medications Discharge Medications: No Known Drug Allergies Allergy (Verified 04/19/24 16:52) CONTINUE taking the following medications gabapentin 300 mg capsule 300 mg PO TID 04/20/24 [History] Discharge Plan Discharge Plan Hospital Course: Patient is a 73-year-old female admitted for GI bleed, generalized weakness, symptomatic anemia. Her hospital/treatment course included:IV fluids and IV Protonix. Patient was transfused 2 units of packed red blood cells. Her hemoglobin stablized at 8.7. General surgery was consulted and EGD did not reveal any sources of bleeding. Pt had no more episodes of melena. She was restarted on Eliquis and instructed to stop Brilinta until she sees her pcp and board filler-Dr Corado. Pt was discharged in stable condition, instructed to follow up with pcp, general surgery, and cardiology outpatient. Patient Disposition: 01 HOME, SELF-CARE Condition: Stable Health Concerns: Post Hospitalization: new medications and changes needed to prevent readmission or further decline. Pt educated and given instructions on all concerns. Plan of Treatment: Continue with present treatment and follow up plan. Pt is to keep follow up appointment as instructed and take medications as ordered. Prescriptions: Continued atorvastatin 40 mg tablet 40 mg PO QPM amiodarone 200 mg tablet 200 mg PO QDAY levothyroxine 200 mcg tablet 200 mcg PO QDAY Patient Comments: Pt. states that she has not been taking her Levothyroxine for a few months Linzess 145 mcg capsule 145 mcg PO QDAY ipratropium-albuterol 0.5 mg-3 mg(2.5 mg base)/3 mL Solution For Nebulization 3 ml NEB TID Qty: 60 0RF Rx Instructions: INHALE ONE TREATMENT THREE TIMES A DAY X 10 DAYS, THEN NEEDED alprazolam 0.25 mg tablet 0.25 mg PO BID tizanidine 2 mg Capsule 2 mg PO BID PRNQty: 60 3RF Rx Instructions: TAKE ONE CAPSULE TWICE A DAY NEEDED FOR MUSCLE SPASMS Hemocyte-Plus 106 mg iron- 1 mg Capsule 1 cap PO QAM Qty: 30 3RF Rx Instructions: TAKE ONE CAPSULE DAILY gabapentin 300 mg capsule 300 mg PO TID Rx Instructions: TAKE ONE CAPSULE TWICE A DAY ropinirole [Requip] 2 mg Tablet 3 mg PO HS carvedilol [Coreg] 3.125 mg Tablet 3.125 mg PO BID oxycodone-acetaminophen 10-325 mg tablet 1 tab PO TID PRN duloxetine 60 mg Capsule,Delayed Release(Dr/Ec) 60 mg PO DAILY Eliquis 5 mg Tablet 5 mg PO BID famotidine [Pepcid] 40 mg tablet 40 mg PO BID Qty: 60 3RF Rx Instructions: TAKE ONE TABLET TWICE A DAY pantoprazole [Protonix] 40 mg Tablet,Delayed Release (Dr/Ec) 40 mg PO BID Qty: 60 3RF Rx Instructions: TAKE ONE TABLET TWICE A DAY Discontinued Brilinta 90 mg Tablet 90 mg PO BID Orders to Discharge Patient Discharge Orders: Discharge (Routine); Ordered 04/21/24 Ordered By: Joss Mtz Follow ups/Referrals Follow ups/Referrals: Lam Parra [STAFF PHYSICIAN] - 1 WEEK Reji Karimi [STAFF PHYSICIAN] - 1 WEEK MISTY RO [STAFF PHYSICIAN] - 2 WEEKS Instructions Stand Alone Forms: Excuse From Work or School, Post Hospital Follow Up Care
== END 2024-04-21 12:45 | disposition home or self-care (01) ==
LOC: MED/SURG
PROVIDERS: ADMIT Internal Medicine; ATTEND Internal Medicine
DX: K31.7 Polyp of stomach and duodenum; Z79.01 Long term (current) use of anticoagulants; K92.2 Gastrointestinal hemorrhage, unspecified; R53.1 Weakness; E80.6 Other disorders of bilirubin metabolism; R42 Dizziness and giddiness; E03.8 Other specified hypothyroidism; R06.02 Shortness of breath; Z98.84 Bariatric surgery status; R94.31 Abnormal electrocardiogram [ECG] [EKG]; E11.65 Type 2 diabetes mellitus with hyperglycemia; D64.89 Other specified anemias